=== PATIENT | male | born 1960 | race Caucasian/White ===

== ENCOUNTER 2017-10-03 07:08 | Inpatient (IN) | payer MEDICAID, OTHER ==
--- NOTE | 2017-10-03 07:19 | CPEKG ---
Heart Rate: 81 RR Interval: 741 P-R Interval: 180 QRSD Interval: 104 QT Interval: 388 QTC Interval: 451 P [place]: 51 QRS [place]: 2 T Wave [place]: 154 EKG Severity - ABNORMAL ECG - EKG Impression: SINUS RHYTHM EKG Impression: LVH WITH SECONDARY REPOLARIZATION ABNORMALITY EKG Impression: ST DEPRESSION, CONSIDER ISCHEMIA, ANT-LAT LDS Electronically Signed By: Sandeep Hackett 05-Oct-2017 10:43:23
[2017-10-03] MEDS ORDERED: ASPIRIN 81 MG CHEWABLE TAB PO ONE (07:26)
[2017-10-03 07:30] LABS: PLATELET COUNT 177 10^3/uL (150-400)
[2017-10-03] MEDS ORDERED: DILTIAZEM 25 MG/5 ML VIAL IVP ONE (07:32)
--- NOTE | 2017-10-03 07:32 | EDPHY ---
H & P Time Seen by Provider: 10/03/17 07:28 HPI/ROS: CHIEF COMPLAINT: Rapid heart rate HISTORY OF PRESENT ILLNESS: 56-year-old male presents with rapid heart rate. He was lying in bed at 4:00 a.m. when he developed a fast irregular heartbeat. The rapid heart rate has continued and makes him feel quite anxious. Associated with diffuse achiness, especially in his arms. No alleviating or aggravating factors. History of an occasional irregular beat, but no history of atrial fibrillation/flutter. Recent h/o chest achiness with exertion, especially with uphill walking. History of aortic stenosis in infancy, non- surgical, no cardiac testing as an adult. Cardiac risk factors negative. Nonsmoker; no family history; no hypertension, diabetes or hypercholesterolemia. REVIEW OF SYSTEMS: Constitutional: No fever, no chills Eyes: No visual changes ENT: No sore throat Respiratory: No cough, no shortness of breath Gastrointestinal: No nausea, no vomiting, no abdominal pain Genitourinary: no dysuria Musculoskeletal: No leg pain or swelling Skin: No rash Neurological: No headache, no weakness Psychiatric: Anxious Past Medical/Surgical History: Aortic stenosis in childhood, non-surgical Social History: No PCP Smoking Status: Never smoked Physical Exam: General Appearance: Alert, pleasant Eyes: Pupils equal and round, no conjunctival pallor or injection ENT, Mouth: Mucous membranes moist Neck: Normal inspection Respiratory: Lungs are clear to auscultation Cardiovascular: Irregularly irregular tachycardia Gastrointestinal: Abdomen is soft and nontender Neurological: A&O, nonfocal, normal gait Skin: Warm and dry, no rash Extremities: Nontender, no pedal edema Psychiatric: Anxious Constitutional: Initial Vital Signs Temperature (C) 36.3 C 10/03/17 07:10 Heart Rate 132 H 10/03/17 07:10 Respiratory Rate 14 10/03/17 07:10 Blood Pressure 117/108 H 10/03/17 07:10 O2 Sat (%) 96 10/03/17 07:10 O2 Delivery Mode Room Air Allergies/Adverse Reactions: No Known Allergies Allergy (Unverified 03/15/12 17:52) Home Medications: Medication Instructions Recorded Azithromycin [Zithromax] 250 mg PO DAILY #4 tab 03/15/12 Docusate Sodium [Colace 100 MG (*)] 100 mg PO DAILY PRN #20 cap 03/15/12 Miscellaneous Medical Supply [NO 1 ea MIS AD 03/15/12 HOME MEDS] Medical Decision Making - Diagnostics EKG Interpretation: EKG interpreted by me reveals atrial fibrillation, ventricular rate 142, LVH, diffuse ST segment depression and T wave inversion in the anterolateral leads. Interpretation: Abnormal EKG Repeat EKG reveals normal sinus rhythm, rate 77, LVH, ST segment depression and T-wave inversion in the anterolateral leads. Interpretation: Abnormal EKG Imaging Results: Imaging Impressions Chest X-Ray 10/03/17 07:20 Impression: 1. Tortuous thoracic aorta. 2. No acute pulmonary disease. ED Course/Re-evaluation: 56-year-old male with a history of aortic stenosis presents in rapid atrial fibrillation and with chest discomfort. On exam he has a loud systolic murmur, consistent with aortic stenosis. Stat EKG reveals atrial fibrillation with RVR and ST segment depression in the anterolateral leads. The patient converted to normal sinus rhythm spontaneously and the chest discomfort resolved. Repeat EKG reveals normal sinus rhythm, persistent ST segment depression in the anterolateral leads, with T-wave inversion. Presentation is concerning for cardiac ischemia, posterior GA considered, but no evidence on repeat EKG. Dr. Lamine Breaux was consulted and will see the patient at [facility] ([place], [place]). Stat echocardiogram ordered. The hospitalist service was consulted for admission. Differential Diagnosis: Differential diagnosis includes though it is not limited to pneumonia, pneumothorax, pulmonary embolism, aortic dissection, pericarditis, acute coronary syndrome. - Data Points Laboratory Results: Laboratory Results 10/03/17 07:25 10/03/17 07:25 10/03/17 10/03/17 10/03/17 07:25 07:25 07:25 WBC 6.07 10^3/uL 10^3/uL (3.80-9.50) RBC 5.69 10^6/uL 10^6/uL (4.40-6.38) Hgb 17.7 g/dL H g/dL (13.7-17.5) Hct 48.7 % % (40.0-51.0) MCV 85.6 fL fL (81.5-99.8) MCH 31.1 pg pg (27.9-34.1) MCHC 36.3 g/dL g/dL (32.4-36.7) RDW 12.2 % % (11.5-15.2) Plt Count 177 10^3/uL 10^3/uL (150-400) MPV 10.7 fL fL (8.7-11.7) Neut % (Auto) 51.0 % % (39.3-74.2) Lymph % (Auto) 35.4 % % (15.0-45.0) [place] % (Auto) 10.2 % % (4.5-13.0) Eos % (Auto) 2.1 % % (0.6-7.6) Baso % (Auto) 1.0 % % (0.3-1.7) Nucleat RBC Rel Count 0.0 % % (0.0-0.2) Absolute Neuts (auto) 3.09 10^3/uL 10^3/uL (1.70-6.50) Absolute Lymphs (auto) 2.15 10^3/uL 10^3/uL (1.00-3.00) Absolute Monos (auto) 0.62 10^3/uL 10^3/uL (0.30-0.80) Absolute Eos (auto) 0.13 10^3/uL 10^3/uL (0.03-0.40) Absolute Basos (auto) 0.06 10^3/uL 10^3/uL (0.02-0.10) Absolute Nucleated RBC 0.00 10^3/uL 10^3/uL (0-0.01) Immature Gran % 0.3 % % (0.0-1.1) Immature Gran # 0.02 10^3/uL 10^3/uL (0.00-0.10) PT 12.6 SEC SEC (12.0-15.0) INR 0.95 (0.83-1.16) APTT 29.0 SEC SEC (23.0-38.0) D-Dimer 0.32 ug/mLFEU ug/mLFEU (0.00-0.50) Sodium 144 mEq/L mEq/L (135-145) Potassium 4.0 mEq/L mEq/L (3.5-5.2) Chloride 104 mEq/L mEq/L (97-110) Carbon Dioxide 23 mEq/l mEq/l (22-31) Anion Gap 17 mEq/L H mEq/L (8-16) BUN 13 mg/dL mg/dL (7-23) Creatinine 1.0 mg/dL mg/dL (0.7-1.3) Estimated GFR > 60 Glucose 110 mg/dL H mg/dL (70-100) Calcium 8.4 mg/dL L mg/dL (8.5-10.4) Troponin I 0.066 ng/mL H ng/mL (0.000-0.034) NT-Pro-B Natriuret Pep 1050 pg/mL H pg/mL (0-125) Medications Given: Heparin Sodium (Porcine) (Heparin 50 Units/Ml (Premix)) 500 mls @ 0 mls/hr IV CONT DURGA; Per Protocol PRN Reason: Protocol Stop: 04/01/18 09:44 Last Admin: 10/03/17 10:05 Dose: 500 mls Discontinued Medications Aspirin (Aspirin) 324 mg PO EDNOW ONE Stop: 10/03/17 07:27 Last Admin: 10/03/17 07:37 Dose: 324 mg Diltiazem HCl (Cardizem 25 Mg/5 Ml Vial) 10 mg IVP EDNOW ONE Stop: 10/03/17 07:33 Last Admin: 10/03/17 07:58 Dose: Not Given Heparin Sodium (Porcine) (Heparin Injection) 0 unit IVP ONCE ONE PRN Reason: Protocol Stop: 10/03/17 09:37 Last Admin: 10/03/17 10:04 Dose: 6,700 units Departure - Departure Disposition: [facility] Inpatient Acute Clinical Impression: Chest pain Qualifiers: Chest pain type: precordial pain Qualified Code(s): R07.2 - Precordial pain Atrial fibrillation Qualifiers: Atrial fibrillation type: paroxysmal Qualified Code(s): I48.0 - Paroxysmal atrial fibrillation Condition: Serious
[2017-10-03 07:44] LABS: INR 0.95 (0.83-1.16); PROTIME(PATIENT) 12.6 SEC (12.0-15.0)
--- NOTE | 2017-10-03 08:03 | CPEKG ---
Heart Rate: 77 RR Interval: 779 P-R Interval: 180 QRSD Interval: 104 QT Interval: 392 QTC Interval: 444 P [place]: 51 QRS [place]: 7 T Wave [place]: 164 EKG Severity - ABNORMAL ECG - EKG Impression: SINUS RHYTHM EKG Impression: LVH WITH SECONDARY REPOLARIZATION ABNORMALITY EKG Impression: ST DEPRESSION, CONSIDER ISCHEMIA, ANT-LAT LDS Electronically Signed By: Sandeep Hackett 05-Oct-2017 10:43:17
[2017-10-03] MEDS ORDERED: LORazepam 2 MG/ML INJ IVP PRN (09:17)
[2017-10-03] MEDS ORDERED: ONDANSETRON DISINTEGRATING 4 MG TAB PO PRN (09:17)
[2017-10-03] MEDS ORDERED: LORazepam 0.5 MG TAB PO PRN (09:17)
[2017-10-03] MEDS ORDERED: D5W 1/2 NS 1,000 ML IV SCH (09:30)
[2017-10-03] MEDS ORDERED: HEPARIN 10,000 UNIT/10 ML MDV (1,000 UNIT/ML) IVP PRN (09:36)
[2017-10-03] MEDS ORDERED: HEPARIN 10,000 UNIT/10 ML MDV (1,000 UNIT/ML) IVP ONE (09:36)
[2017-10-03] MEDS ORDERED: METOPROLOL TARTRATE 25 MG TAB PO ONE (09:37)
[2017-10-03] MEDS ORDERED: HEPARIN/DEXTROSE 500 ML IV SCH (09:45)
--- NOTE | 2017-10-03 11:45 | ECHO ---
[email or web address] [address] [address] Main: [phone] Fax: Transthoracic Echocardiogram Name: GERALD MULLER MR#: [id number] Study Date: 10/03/2017 Study Time: 09:54 AM Date of : 1960 Age: 56 year(s) Height: 193 cm (76 in.) Weight: 108.86 kg (240 lb.) BSA: 2.39 m2 Gender: Male Examination: Echo Indication: Chest Pain Image Quality: Contrast: Requested by: Keesha Lin BP: 113 mmHg/79 mmHg Heart Rate: Rhythm: Indication: Chest Pain Procedure Staff Picker: Tanja Galloway [facility] Reading Physician: Leighton West Requesting Provider: Conclusions: Mildly dilated left ventricle. Moderate concentric LV hypertrophy. Normal global systolic LV function. EF is 64 %. No regional wall motion abnormality. E/a wave reversal.. Normal size right ventricle. The left atrium is normal in size. The right atrium is normal in size. Trivial mitral valve regurgitation. Severe calcific aortic valve stenosis. Mild aortic valve regurgitation is present. Severely calcified of the aortic valve. AV max PG is 76mmHG. AV mean PG is 48mmHG,. The tricuspid valve is normal in appearance and function. The pulmonic valve is normal in appearance and function. Mildly dilated ascending aorta measuring 4.3 cm. Measurements: Chambers Valvular Assessment AV/MV Valvular Assessment TV/PV Normal Normal Normal Name Value Range Name Value Range Name Value Range Ao Ilene (MM): 3.9 cm (2.2 cm-3.7 AV Vmax: 4.37 m/s (1 m/s-1.7 TR Vmax: 2.48 mm/s ( - ) cm) m/s) TR PGmax: 25 mmHg ( - ) IVSd (2D): 1.1 cm (0.6 cm-1.1 AV maxP mmHg ( - ) syst. PAP: 30 mmHg ( - ) cm) AV meanP mmHg ( - ) LVDd (2D): 6.1 cm (4.2 cm-5.9 LVOT Vmax: 0.77 m/s (0.7 m/s-1.1 cm) m/s) LVDs (2D): 4.3 cm (2.1 cm-4 AUBREY (Vmax): 1.1 cm2 ( - ) cm) AUBREY (VTI): 1.0 cm ( - ) MV E Vmax: 0.39 m/s ( - ) Patient: GERALD MULLER Study Date: 10/03/2017 Page 1 of 2 09:54 AM LVPWd (2D): 1.1 cm (0.6 cm-1 MV A Vmax: 0.86 m/s ( - ) cm) MV E/A: 0.45 ( - ) LVOTd 2.8 cm 2.8 cm mm LVEF (MOD4): 64 % (>=55 %) Continued Measurements: Chambers Valvular Assessment AV/MV Valvular Assessment TV/PV Name Value Name Value Name Value LADs Lon.4 cm MV E/E' Septal: 9.80 CVP (est.): 5 mmHg LA Area: 15.1 cm2 MV E/E' Lateral: 10.50 Additional Vessels Name Value Ao Ascendin.3 cm Findings: Left Ventricle: Mildly dilated left ventricle. Moderate concentric LV hypertrophy. Normal global systolic LV function. EF is 64 %. No regional wall motion abnormality. E/a wave reversal.. Right Ventricle: Normal size right ventricle. Left Atrium: The left atrium is normal in size. Right Atrium: The right atrium is normal in size. Mitral Valve: The mitral valve is normal in appearance and function. Trivial mitral valve regurgitation. Aortic Valve: Severe calcific aortic valve stenosis. Mild aortic valve regurgitation is present. Severely calcified of the aortic valve. AV max PG is 76mmHG. AV mean PG is 48mmHG,. Tricuspid Valve: The tricuspid valve is normal in appearance and function. Pulmonic Valve: The pulmonic valve is normal in appearance and function. Aorta: The aorta is normal. Mildly dilated ascending aorta measuring 4.3 cm. Pericardium: No pericardial effusion. (No Signature Object) Patient: GERALD MULLER Study Date: 10/03/2017 Page 2 of 2 09:54 AM [id number]
--- NOTE | 2017-10-03 12:16 | PDGENHP ---
History and Physical - Chief Complaint Acute palpitation - History of Present Illness Primary care provider: None HPI: 56-year-old male presenting with acute palpitation characterized as a sensation that his heart was racing, with palpable palpitation in his neck and ears, with associated myalgias located across his anterior chest and upper extremities, provoked in his lower extremities with ambulation, and resulting in some anxiety. Onset of symptoms was 4:00 a.m. on the day of presentation, and duration was persistent thereafter until the patient got [facility], approximately 3.5 hr later. While at urgent care, the patient's palpitations and chest discomfort abated, prior to receiving diltiazem. He reports that over the past couple weeks he has experienced shortness of breath exacerbated with exertion, particularly ambulating upstairs or hiking, and although this has been present for the past couple years, it has increased over the last few weeks. It has been alleviated with rest. He has experienced palpitations of lower severity approximately 8 years ago, when he went to [place] and was evaluated with an EKG in the emergency department, told that he had nothing wrong. He has noted that recently he experiences an irregular heartbeat , has not noted any sustained irregularity. He does exercise on a weekly basis , but he reports that he does not do any significant cardiovascular exercise, other than hiking, which has recently become impaired secondary to his poor exercise tolerance. History Information - Allergies/Home Medication List Allergies/Adverse Reactions: bee stings Allergy (Uncoded 10/03/17 11:12) Home Medications: NK [No Known Home Meds] 10/03/17 [Last Taken Unknown] I have personally reviewed and updated: family history, medical history, social history, surgical history - Past Medical History Additional medical history: Aortic stenosis identified in childhood, has not had an echocardiogram as an adult - Surgical History Reports: no pertinent surgical hx - Family History Additional family history: No family history of premature coronary disease or aortic dissection - Social History Smoking Status: Never smoked Alcohol Use: Occasionally Drug Use: None Additional social history: Independent in ADLs comma exercises weekly but lacks cardiovascular exercise Review of Systems Review of Systems: ROS: 10pt was reviewed & negative except for what was stated in HPI & below Cardiac: Reports: irregular heart rate, palpitations, other (Chest discomfort) Respiratory: Reports: shortness of breath (Exertional) Muscolosketal: Reports: other (Myalgias upper extremities) Physical Exam Physical Exam: Temp Pulse Resp BP Pulse Ox 36.7 C 67 15 125/94 H 98 10/03/17 11:44 10/03/17 12:06 10/03/17 12:06 10/03/17 12:06 10/03/17 12:06 O2 (L/minute) 2 Constitutional: no apparent distress, appears nourished, not in pain Eyes: PERRL, anicteric sclera, EOMI Ears, Nose, Mouth, Throat: moist mucous membranes, hearing normal, ears appear normal, no oral mucosal ulcers Cardiovascular: systolic murmur (3/6 at right sternal border), No irregularly irregular, No tachycardia, No edema Respiratory: no respiratory distress, no rales or rhonchi, clear to auscultation Gastrointestinal: normoactive bowel sounds, soft, non-tender abdomen, no palpable masses Skin: warm, No abrasion, No rash Neurologic: AAOx3, sensation intact bilaterally, No weakness Psychiatric: interacting appropriately, not anxious, not encephalopathic, thought process linear Lab Data & Imaging Review 10/03/17 07:25 10/03/17 07:25 WBC 6.07 10^3/uL (3.80-9.50) 10/03/17 07:25 RBC 5.69 10^6/uL (4.40-6.38) 10/03/17 07:25 Hgb 17.7 g/dL (13.7-17.5) H 10/03/17 07:25 Hct 48.7 % (40.0-51.0) 10/03/17 07:25 MCV 85.6 fL (81.5-99.8) 10/03/17 07:25 MCH 31.1 pg (27.9-34.1) 10/03/17 07:25 MCHC 36.3 g/dL (32.4-36.7) 10/03/17 07:25 RDW 12.2 % (11.5-15.2) 10/03/17 07:25 Plt Count 177 10^3/uL (150-400) 10/03/17 07:25 MPV 10.7 fL (8.7-11.7) 10/03/17 07:25 Neut % (Auto) 51.0 % (39.3-74.2) 10/03/17 07:25 Lymph % (Auto) 35.4 % (15.0-45.0) 10/03/17 07:25 [place] % (Auto) 10.2 % (4.5-13.0) 10/03/17 07:25 Eos % (Auto) 2.1 % (0.6-7.6) 10/03/17 07:25 Baso % (Auto) 1.0 % (0.3-1.7) 10/03/17 07:25 Nucleat RBC Rel Count 0.0 % (0.0-0.2) 10/03/17 07:25 Absolute Neuts (auto) 3.09 10^3/uL (1.70-6.50) 10/03/17 07:25 Absolute Lymphs (auto) 2.15 10^3/uL (1.00-3.00) 10/03/17 07:25 Absolute Monos (auto) 0.62 10^3/uL (0.30-0.80) 10/03/17 07:25 Absolute Eos (auto) 0.13 10^3/uL (0.03-0.40) 10/03/17 07:25 Absolute Basos (auto) 0.06 10^3/uL (0.02-0.10) 10/03/17 07:25 Absolute Nucleated RBC 0.00 10^3/uL (0-0.01) 10/03/17 07:25 Immature Gran % 0.3 % (0.0-1.1) 10/03/17 07:25 Immature Gran # 0.02 10^3/uL (0.00-0.10) 10/03/17 07:25 PT 12.6 SEC (12.0-15.0) 10/03/17 07:25 INR 0.95 (0.83-1.16) 10/03/17 07:25 APTT 29.0 SEC (23.0-38.0) 10/03/17 07:25 D-Dimer 0.32 ug/mLFEU (0.00-0.50) 10/03/17 07:25 Sodium 144 mEq/L (135-145) 10/03/17 07:25 Potassium 4.0 mEq/L (3.5-5.2) 10/03/17 07:25 Chloride 104 mEq/L (97-110) 10/03/17 07:25 Carbon Dioxide 23 mEq/l (22-31) 10/03/17 07:25 Anion Gap 17 mEq/L (8-16) H 10/03/17 07:25 BUN 13 mg/dL (7-23) 10/03/17 07:25 Creatinine 1.0 mg/dL (0.7-1.3) 10/03/17 07:25 Estimated GFR > 60 10/03/17 07:25 Glucose 110 mg/dL (70-100) H 10/03/17 07:25 Calcium 8.4 mg/dL (8.5-10.4) L 10/03/17 07:25 Troponin I 0.066 ng/mL (0.000-0.034) H 10/03/17 07:25 NT-Pro-B Natriuret Pep 1050 pg/mL (0-125) H 10/03/17 07:25 TSH 3.240 uIU/mL (0.465-4.680) 10/03/17 10:54 Visualized and Interpreted Chest x-ray results: Yes Chest X-Ray results: no infiltrate (A tortuous aorta) Visualized and Interpreted EKG results: Yes EKG Interpretation: Positive for: other (Initial EKG demonstrating atrial fibrillation with anterolateral ST depression, subsequent EKG demonstrating normal sinus mechanism with T-wave inversion laterally) Assessment & Plan Assessment: 56-year-old male presenting with acute atrial fibrillation and rapid ventricular response in the setting of aortic stenosis and myocardial ischemia Plan: 1. Atrial fibrillation with rapid ventricular response. Acute, new problem this provider, further workup indicated. Unclear whether this is a result of his aortic stenosis versus result of myocardial ischemia verses the cause of myocardial ischemia -patient spontaneously [facility], continue monitor on telemetry for recurrence as he is high risk -patient will most likely require either sanchez blocking or antiarrhythmic agent moving forward -whether he requires systemic anticoagulation will be at the discretion of Cardiology, depending on further workup outlined below -echocardiogram, TSH 2. Myocardial ischemia. Likely transient in the setting of AFib RVR, although it is entirely possible that it may have been the cause, troponin 0.7, EKG with T-wave inversions and dynamic ST depressions -continue monitor on telemetry as noted above -discussed with Dr. Leighton West, appreciate consultation, he reports to me that cardiac catheterization would be considered after he has evaluated the patient' s echocardiogram -continue the keep the patient NPO -continue to cycle cardiac enzymes -given the possibility of unstable angina, patient has received full-dose aspirin, give low-dose beta-jessica, placed on heparin drip 3. Aorta stenosis. Chronic, unclear severity, getting echocardiogram, this may have been potentiating cause of atrial fibrillation and myocardial strain -avoid lowering his blood pressure Diet. NPO presently, IV fluids Prophylaxis. High patient, heparin drip Code. Full, is [place] Disposition. Anticipated discharge 10/04, pending further workup as outlined above. Patient is a high risk patient, high level medical complexity given the situations above.
[2017-10-03] MEDS ORDERED: fentaNYL 100 MCG/2 ML INJ ONE (13:48)
[2017-10-03] MEDS ORDERED: MIDAZOLAM 2 MG/2 ML VIAL ONE (13:48)
[2017-10-03] MEDS ORDERED: LIDOCAINE 1% 300 MG/30 ML SDV ONE (13:48)
[2017-10-03] MEDS ORDERED: IOPAMIDOL (ISOVUE-370) 150 ML BTL IV ONE (13:48)
--- NOTE | 2017-10-03 14:11 | PDCARCONS ---
Cardiology Consult Reason for Consult: Tachycardia and history of "murmur" Chief Complaint: Fast heart rates Requesting Physician: Hospitalist Team History of Present Illness: 56 y/o male with history of "murmur", but no history of CAD, HTN, HLP, or DM, who presented to [facility] urgent care with "fast heart rates". Patient had awareness of palpitations with discomfort to the chest and heaviness to the upper extremities. Symptoms started about 0400 today, and continued into the evaluation at [facility]. Patient's arrhythmia (atrial fibrillation with RVR) spontaneously resolved prior to IV CCB therapy being given. Patient also reported to ER and hospitalist team symptoms of shortness of breath, exercise intolerance, and palpitations (such as that noted today, but without protracted presence). Patient had a work up in [place] with ECG about 8 years ago, at which time "everything was fine". Dizziness and lightheadedness have been noted. No syncope. Mild LE edema has been noted, but was attributed to long travel in car. Remainder of the 12 point review of systems was unremarkable. In the remote past, the patient was told that he had a "bicuspid aorta", but has not sought follow up imaging or assessment for "...many years...". Angiography when he was [age] years of age, was the last, formal work up. Patient and were evaluated in the step down of the ICU today prior to formal read on echocardiography. I suspected progression of the known aortic valve pathology based on symptoms and physical findings (as reported below). History Information - Allergies/Home Medication List Allergies/Adverse Reactions: bee stings Allergy (Uncoded 10/03/17 11:12) Home Medications: NK [No Known Home Meds] 10/03/17 [Last Taken Unknown] I have personally reviewed and updated: family history, medical history, social history, surgical history Past Medical History: - Past Medical History atrial fibrillation - Surgical History Reports: no pertinent surgical hx - Family History Positive for: CAD, hypertension - Social History Smoking Status: Never smoked Alcohol Use: Occasionally Drug Use: None Cardiac History - Cardiac History Past Cardiac History: OTHER (bicuspid aortic valve without follow up) Cardiac Risk Factors: male Timing/Duration: Weeks Severity: moderate Severity Scale: 6 Location: substernal, central Activities at Onset: activity Modifying Factors: improves with: lying down, rest Associated Symptoms: chest pain, shortness of breath, weakness, other ( palpitations) Physical Exam Physical Exam: Temp Pulse Resp BP Pulse Ox 36.7 C 67 15 125/94 H 98 10/03/17 11:44 10/03/17 12:06 10/03/17 12:06 10/03/17 12:06 10/03/17 12:06 O2 (L/minute) 2 Constitutional: no apparent distress, appears nourished, not in pain Eyes: PERRL Ears, Nose, Mouth, Throat: moist mucous membranes, hearing normal Cardiovascular: regular rate and rhythym, systolic murmur (IV/ SEE), pulses symmetric bilaterally, carotid bruit (secondary to aortic valve pathology ( referred)), No JVD, No tachycardia Peripheral Pulses: 2+: dorsalis-pedis (R), dorsalis-pedis (L) Respiratory: no respiratory distress, no rales or rhonchi, clear to auscultation Gastrointestinal: normoactive bowel sounds Genitourinary: no bladder fullness Skin: warm, normal color, No rash Musculoskeletal: full muscle strength, no muscle tenderness Neurologic: AAOx3, sensation intact bilaterally, CN II-XII Intact Psychiatric: interacting appropriately, not anxious, not encephalopathic Lab and Imaging 10/03/17 07:25 10/03/17 07:25 WBC 6.07 10^3/uL (3.80-9.50) 10/03/17 07:25 RBC 5.69 10^6/uL (4.40-6.38) 10/03/17 07:25 Hgb 17.7 g/dL (13.7-17.5) H 10/03/17 07:25 Hct 48.7 % (40.0-51.0) 10/03/17 07:25 MCV 85.6 fL (81.5-99.8) 10/03/17 07:25 MCH 31.1 pg (27.9-34.1) 10/03/17 07:25 MCHC 36.3 g/dL (32.4-36.7) 10/03/17 07:25 RDW 12.2 % (11.5-15.2) 10/03/17 07:25 Plt Count 177 10^3/uL (150-400) 10/03/17 07:25 MPV 10.7 fL (8.7-11.7) 10/03/17 07:25 Neut % (Auto) 51.0 % (39.3-74.2) 10/03/17 07:25 Lymph % (Auto) 35.4 % (15.0-45.0) 10/03/17 07:25 [place] % (Auto) 10.2 % (4.5-13.0) 10/03/17 07:25 Eos % (Auto) 2.1 % (0.6-7.6) 10/03/17 07:25 Baso % (Auto) 1.0 % (0.3-1.7) 10/03/17 07:25 Nucleat RBC Rel Count 0.0 % (0.0-0.2) 10/03/17 07:25 Absolute Neuts (auto) 3.09 10^3/uL (1.70-6.50) 10/03/17 07:25 Absolute Lymphs (auto) 2.15 10^3/uL (1.00-3.00) 10/03/17 07:25 Absolute Monos (auto) 0.62 10^3/uL (0.30-0.80) 10/03/17 07:25 Absolute Eos (auto) 0.13 10^3/uL (0.03-0.40) 10/03/17 07:25 Absolute Basos (auto) 0.06 10^3/uL (0.02-0.10) 10/03/17 07:25 Absolute Nucleated RBC 0.00 10^3/uL (0-0.01) 10/03/17 07:25 Immature Gran % 0.3 % (0.0-1.1) 10/03/17 07:25 Immature Gran # 0.02 10^3/uL (0.00-0.10) 10/03/17 07:25 PT 12.6 SEC (12.0-15.0) 10/03/17 07:25 INR 0.95 (0.83-1.16) 10/03/17 07:25 APTT 29.0 SEC (23.0-38.0) 10/03/17 07:25 D-Dimer 0.32 ug/mLFEU (0.00-0.50) 10/03/17 07:25 Sodium 144 mEq/L (135-145) 10/03/17 07:25 Potassium 4.0 mEq/L (3.5-5.2) 10/03/17 07:25 Chloride 104 mEq/L (97-110) 10/03/17 07:25 Carbon Dioxide 23 mEq/l (22-31) 10/03/17 07:25 Anion Gap 17 mEq/L (8-16) H 10/03/17 07:25 BUN 13 mg/dL (7-23) 10/03/17 07:25 Creatinine 1.0 mg/dL (0.7-1.3) 10/03/17 07:25 Estimated GFR > 60 10/03/17 07:25 Glucose 110 mg/dL (70-100) H 10/03/17 07:25 Calcium 8.4 mg/dL (8.5-10.4) L 10/03/17 07:25 Troponin I 0.066 ng/mL (0.000-0.034) H 10/03/17 07:25 NT-Pro-B Natriuret Pep 1050 pg/mL (0-125) H 10/03/17 07:25 TSH 3.240 uIU/mL (0.465-4.680) 10/03/17 10:54 Visualized and Interpreted Chest x-ray results: Yes Chest X-ray Interpretation: no infiltrate, normal heart size, other (tortuous aorta) EKG Interpretation: Positive for: normal sinsus rhythm, NS ST wave abnormalities , other (LVH), ST depression Telemetry: sinus rhythm with ST/T wave changes Echocardiogram: normal LVEF. Severe aortic stenosis (mean: >40 mm Hg; AUBREY est 0.88 cm^2) with mild to moderate AI. Mild LVH. Mild LV dilation A/P Assessment: Patient is a 56 y/o male with longstanding history of bicuspid aortic valve, now with pAF noted (has been noted for "some time", but not protracted, as was noted today), and symptoms of dizziness, lightheadedness, weakness, and exercise intolerance. Echocardiography with critical with AI and preserved LVEF, but mild dilation to the LV. Plan: I spoke with CT surgery. Angiography is planned for today. No need for GEOVANI ( per CT surgery). Further recommendations and formal CT consultation is pending. Would ensure that patient's children have echocardiography for assessment of potential valve pathology.
--- NOTE | 2017-10-03 14:19 | PDPROPOC ---
Sedation Plan of Care Sedation Plan of Care: vital signs stable, mental status noted, patient educated of risks, benefits, alternatives, patient can tolerate sedation ASA Classification: ASA 2 Planned drugs: fentanyl, midazolam Mallampati Score: Class 3 Mallampati Reference Image: Patient passed 3-3-2 rule?: Yes
--- NOTE | 2017-10-03 14:20 | PDHPUP ---
History & Physical Update H&P update statement: This history and physical update is based on an assessment of the patient which was completed after admission or registration (within 24 hours), but prior to the surgery/procedure. H&P update: H&P reviewed & patient examined, no change in patient's condition since H&P completed (cardiology consult is posted.)
--- NOTE | 2017-10-03 14:59 | PDDXCAT ---
Diagnostic Cath Note - . Date: 10/03/17 Production Support Consultant: Brett Indication: other (patient with pending aortic valve surgery) - Procedure Access: right groin Procedure: left heart catheterization, coronary angiography - Materials Left Heart Cath size: 6F Left Heart Cath materials: standard multipack (JL4, JR4, pigtail), JL5.0 - Findings-Left Heart Catheterization LM: Lengthy medium diameter vessel with bifurcation into the LAD and LCX vessels. No luminal irregularities were noted. LAD: Large diameter vessel with one principal diagonal vessel. No luminal irregularities were noted. LCX: Medium diameter vessel with a smallish OM1. OM2 with vast majority of the LCX diameter continuing on. The mid/distal LCX is rather small an diminuative. RCA: Non selective injection of the RCA. Dominant vessel (PDA) without appreciable luminal irregularities noted. EDP: not performed LVEF: not performed. we performed an aortic root injection give (a) catheter whip when attempting RCA injection and the need for JL5 given the appreciated dilation noted. The ascending aorta was 4.5 cm with dilation of the innominate as well. Wall motion: not assessed Complications: none Estimated blood loss: <50ml Closure method: Angioseal Assessment: Patient is a 56 y/o male with known, long standing history of bicuspid aortic valve without cardiovascular follow up for "years". Critical with AI noted on echo with preserved LVEF and mild LV dilation. No other critical valve pathology was noted. Aortic root dilation (4.5 cm) is noted as well. Plan: CT surgery to consult with the patient today and discuss AVR for tomorrow ( potentially) with root replacement. Intervention: none Patient Problems: Problems Problem Status Onset Atrial fibrillation Acute Chest pain Acute
--- NOTE | 2017-10-03 20:00 | GCON ---
[f rep st] CONSULTATION DATE OF CONSULTATION: 10/03/2017 Patient is seen at the request of Dr. West with the patient's permission. IMPRESSION: 1. Severely symptomatic aortic stenosis with paroxysmal atrial fibrillation, recurrent. 2. Moderately enlarged ascending aorta at 4.3 cm. RECOMMENDATIONS: This patient is quite symptomatic with crescendo symptoms over the last year, preci pitating admission for acute congestive heart failure precipitated by atrial fibrillation in the face of aortic stenosis. He underwent diagnostic left heart catheterization. He spontaneously cardiover digna to sinus rhythm. He was recommended to undergo replacement of his ascending aorta and aortic justin ve with a Mcarthur-Maze IV procedure. Risks and complications were reviewed at length. Alternatives incl ude continued medical therapy with obvious poor outcome. He and his were present for discussion . All risks and complications, including 1% mortality, were reviewed at length. I advised him he wo uld need 3 months of full anticoagulation on Coumadin and that we would do some sort of event monitor to assess his rhythm at the end to 3 months, and if he remained in sinus rhythm, we could consider d iscontinuing anticoagulants. I also advised him there was a small 3% to 5% risk of permanent pacemak er in the face of aortic stenosis and atrial fibrillation, depending upon the calcium burden, particu larly around the bundle and the membranous septum. He is agreeable to proceed with surgery. CHIEF COMPLAINT: A 56-year-old gentleman presenting with acute palpitations and a sensation his hear t was racing in his neck and ears. He had associated myalgias across the anterior chest and extremit ies provoked by ambulation. He also had significant anxiety on presentation. He admits to having wo rsening dyspnea on exertion and inability to do anything physical, including walking any significant distance without experiencing shortness of breath. He feels palpitations on a regular basis for the last year, but has never sought medical attention or had any diagnostic tests performed. He was foun d to be in rapid atrial fibrillation on admission. Echo revealed critical aortic stenosis. Coronari es showed no significant obstructive disease with a 4.3 to 4.5 cm ascending aorta. PAST MEDICAL HISTORY: Otherwise unremarkable. He was advised he had an aortic murmur in childhood. PAST SURGICAL HISTORY: No previous surgical history. FAMILY HISTORY: Noncontributory. SOCIAL HISTORY: Smoking: He never smoked. Alcohol: Occasional. Drug use: None. He is independe nt, retired from [employer]. He is and has 1 child, who is present. REVIEW OF SYSTEMS: Except for presenting complaints, at the present time, he is lying comfortably in bed, quite anxious and tearful. Family is present. PHYSICAL EXAMINATION: HEENT: Normocephalic. NIKITA. EOMI. NECK: Without bruit. HEART: Reveals a 3/6 systolic ejection murmur. He is currently in sinus rhythm. LUNGS: Clear. ABDOMEN: Soft, nontender. Bowel sounds are active. RECTAL AND GENITAL: Deferred. NEUROLOGICAL: He is grossly intact. Mood and affect are appropriate but tearful. /[id number]/MODL
[2017-10-03] MEDS ORDERED: CHLORHEXIDINE GLUC HIBICLENS 118 ML BTL TP SCH (21:00)
--- NOTE | 2017-10-03 21:21 | PDMN ---
Medical Necessity Medical necessity: Patient meets inpatient criteria per physician note and [facility] [place] [place] Cardiology GRG, with likely change to [id number] Cardiac Valve Replacement or Repair (acute valvular disease requiring inpatient admission: severe aortic stenosis/ hx bicuspid aortic valve, now w/ exercise intolerance, palpitations, atrial fib , chest discomfort; awaiting aortic valve/ascending aortic repair/replacement; anticipated LOS > 2 midnights for surgery and recovery.)
[2017-10-04 06:19] LABS: PLATELET COUNT 145 10^3/uL (150-400)
[2017-10-04] MEDS ORDERED: ALBUMIN 5% 250 ML BOTTLE IV ONE ×2 (06:58→19:28)
[2017-10-04] MEDS ORDERED: PROTAMINE SULFATE 50 MG/5 ML VIAL IVP ONE ×2 (06:58→18:55)
[2017-10-04] MEDS ORDERED: NA BICARBONATE 50 MEQ/50 ML VIAL ONE (06:59)
[2017-10-04] MEDS ORDERED: HEPARIN 10,000 UNIT/10 ML MDV (1,000 UNIT/ML) ONE (06:59)
[2017-10-04] MEDS ORDERED: MILRINONE/DEXTROSE/100 ML BAG IV ONE (06:59)
[2017-10-04] MEDS ORDERED: DOPamine/DEXTROSE/250 ML BAG IV ONE (06:59)
[2017-10-04] MEDS ORDERED: LIDOCAINE 2% 100 MG/5 ML SYR ONE ×2 (06:59→14:37)
[2017-10-04] MEDS ORDERED: CALCIUM CHLORIDE 1 GM/10 ML INJ ONE ×4 (06:59→20:24)
[2017-10-04] MEDS ORDERED: CITRATE DEXTROSE SOLN 500 ML BAG ONE (06:59)
[2017-10-04] MEDS ORDERED: niCARdipine/NACL/200 ML BAG IV ONE (06:59)
[2017-10-04] MEDS ORDERED: MAGNESIUM SULFATE 1 GM/2 ML VIAL ONE (07:00)
[2017-10-04] MEDS ORDERED: methylPREDNISolone SOD SUCC 1 GM/8 ML VIAL ONE (07:00)
[2017-10-04] MEDS ORDERED: ADENOSINE 6 MG/2 ML VIAL ONE (07:00)
[2017-10-04] MEDS ORDERED: AMIODARONE HCL 150 MG/3 ML VIAL ONE (07:00)
[2017-10-04] MEDS ORDERED: ceFAZolin 1 GM VIAL ONE ×3 (07:00→19:24)
--- NOTE | 2017-10-04 09:47 | ASMTLACE ---
TOY Acuity / Level of Answers: Yes Care: Did the patient have an inpatient admission? Comorbidities - select Answers: Other Notes: CP, Afib, Severe aortic all that apply stenosis # of Emergency department Answers: 1-2 visits in the last 6 months Score: 5 Date Signed: 10/04/2017 09:46 AM Electronically Signed By:Sravanthi Yang LCSW
--- NOTE | 2017-10-04 09:52 | ASMTCMCOM ---
CM Note CM Note Notes: 56 year old male admitted for CP, Afib, Severe Aortic stenosis. Paient lives with his . CM to follow for possible discharge needs. Date Signed: 10/04/2017 09:51 AM Electronically Signed By:Sravanthi Yang LCSW
--- NOTE | 2017-10-04 10:37 | PDCARPN ---
Cardiology Progress Note Chief Complaint: No cardiovascular complaints, but moderate (expected) anxiety about pending surgery Assessment/Plan: Assessment: 10-04-17 No cardiovascular complaints. Patient is scheduled for AVR, ascending root replacement and MAZE later today. Angiography yesterday did not isolate any critical CAD. Dilation of the aortic root was noted (up to 4.5 cm). No LV gram was performed given the data from echocardiography. Patient denies any chest pains or pressure today. No PND or orthopnea. No arrhythmias were appreciated. Discussion with CT surgery about risks and benefits of the pending surgery yesterday. Sleep overnight was fair. 10-03-17 56 y/o male with history of "murmur", but no history of CAD, HTN, HLP, or DM, who presented to [facility] [place] urgent care with "fast heart rates". Patient had awareness of palpitations with discomfort to the chest and heaviness to the upper extremities. Symptoms started about 0400 today, and continued into the evaluation at [facility] [place]. Patient's arrhythmia (atrial fibrillation with RVR) spontaneously resolved prior to IV CCB therapy being given. Patient also reported to ER and hospitalist team symptoms of shortness of breath, exercise intolerance, and palpitations (such as that noted today, but without protracted presence). Patient had a work up in [place] with ECG about 8 years ago, at which time "everything was fine". Dizziness and lightheadedness have been noted. No syncope. Mild LE edema has been noted, but was attributed to long travel in car. Remainder of the 12 point review of systems was unremarkable. In the remote past, the patient was told that he had a "bicuspid aorta", but has not sought follow up imaging or assessment for "...many years...". Angiography when he was [age] years of age, was the last, formal work up. Patient and were evaluated in the step down of the ICU today prior to formal read on echocardiography. I suspected progression of the known aortic valve pathology based on symptoms and physical findings (as reported below). Plan: (1) CT surgery with AVR, aortic root, and MAZE later today Subjective: No cardiovascular complaints. Moderate anxiety. Reviewed/Discussed With: family, multidisciplinary team Objective: Vital Signs (8 Hrs) Temp Pulse Resp BP Pulse Ox 10/04/17 04:00 36.8 C 67 18 99/69 L 93 Intake/Output (24 Hrs) 02/12/18 02/13/18 02/14/18 05:59 05:59 05:59 Intake Total 1250 Balance 1250 Intake: Oral (ml) 900 IV Infused (ml) 350 D5w 1/2 Ns 1,000 ml @ 100 250 mls/hr IV CONT DURGA Rx#: [id number] Heparin/Dextrose 500 ml @ 100 Per Protocol IV CONT DURGA Rx#:[id number] Other: Number of Voids Toilet 2 Result Diagrams: 10/04/17 05:55 10/04/17 05:55 Cardiac Labs: Cardiac Lab Results (72 Hrs) 10/04/17 10/03/17 05:55 16:45 Troponin I 0.483 H 0.923 H Telemetry: sinus rhythm with non specific ST/T wave changes noted (unchanged) - Physical Exam Constitutional: WDWN, healthy appearing, no apparent distress Eyes: PERRL, EOMI Ears, Nose, Mouth, Throat: moist mucous membranes Cardiovascular: regular rate and rhythm, systolic murmur (IV/ SEE with radiation into carotids (right>left)), pulses symmetric bilat, No jugular vein distention Peripheral Pulses: 2+: dorsalis-pedis (R), dorsalis-pedis (L) Respiratory: clear to auscultate bilat, no crackles, no wheezes Gastrointestinal: normoactive bowel sounds Genitourinary: no suprapubic tenderness Skin: no rashes, no edema Musculoskeletal: no muscular tenderness Neurologic: AAOx3, CN II-XII grossly intact Psychiatric: cooperative, interactive, following commands, anxious ICD10 Worksheet Patient Problems: Problems Problem Status Onset Atrial fibrillation Acute Chest pain Acute
[2017-10-04] MEDS ORDERED: INSULIN REGULAR HUMAN 100 UNIT in NS 100 ML IV ONE (12:30)
[2017-10-04] MEDS ORDERED: MANNITOL 25% 12.5 GM/50 ML VIAL IVP ONE (12:30)
[2017-10-04] MEDS ORDERED: ceFAZolin 2 GM/SWFI 2 GM/20 ML SYR IVP ONE (12:30)
[2017-10-04] MEDS ORDERED: NOREPINEPHRINE BITARTRATE 16 MG in NS 250 ML IV ONE (12:30)
[2017-10-04] MEDS ORDERED: MUPIROCIN 2% 22 GM OINT NS ONE (12:30)
[2017-10-04] MEDS ORDERED: SODIUM BICARBONATE 20 MEQ, LIDOCAINE 1% 10 ML in NORMOSOL-R 1,000 ML MISC ONE (12:30)
[2017-10-04] MEDS ORDERED: niCARdipine/NACL 200 ML IV SCH (12:30)
[2017-10-04] MEDS ORDERED: CITRATE DEXTROSE SOLN 500 ML BAG MISC ONE (12:30)
[2017-10-04] MEDS ORDERED: PHENYLEPHRINE HCL 50 MG in NS 250 ML IV ONE (12:30)
[2017-10-04] MEDS ORDERED: TRANEXAMIC ACID 1,000 MG in NS (SYRINGE) 50 ML IV ONE (12:30)
[2017-10-04] MEDS ORDERED: MIDAZOLAM 2 MG/2 ML VIAL ONE ×3 (14:10→14:32)
[2017-10-04] MEDS ORDERED: MIDAZOLAM 2 MG/2 ML VIAL IVP ONE (14:13)
--- NOTE | 2017-10-04 14:17 | PDANEPAE ---
ANE History of Present Illness s/f AVR, ROOT, MAZE ANE Past Medical History - Cardiovascular History Hx Arrhythmias: Yes Hx CHF / Valvular Disease: Yes Cardiovascular History Comment: bicuspid Ao Valve, severe , parox A-fib - Pulmonary History Hx Oxygen in Use at Home: No Hx Sleep Apnea: No Sleep Apnea Screening Result - Last Documented: Positive - Endocrine History Hx Diabetes: No ANE Review of Systems Review of Systems: - Exercise capacity Exercise capacity: >=4 METS ANE Patient History - Allergies Allergies/Adverse Reactions: bee stings Allergy (Uncoded 10/03/17 11:12) - Home Medications Home medications: home medication list seen and reviewed Home Medications: NK [No Known Home Meds] 10/03/17 [Last Taken Unknown] - NPO status NPO Status: no food or drink >8 hours NPO Since - Liquids (Date): 10/03/17 NPO Since - Liquids (Time): 02:00 NPO Since - Solids (Date): 10/03/17 NPO Since - Solids (Time): 12:00 - Anes Hx Anes Hx: no prior problems - Smoking Hx Smoking Status: Never smoked - Alcohol Use Alcohol Use: Occasionally - Family Anes Hx Family Anes Hx: none ANE Labs/Vital Signs - Labs Result Diagrams: 10/04/17 05:55 10/04/17 05:55 - Vital Signs Blood Pressure: 129/76 Heart Rate: 69 Respiratory Rate: 14 O2 Sat (%): 93 Height: 190.5 cm Weight: 110 kg ANE Physical Exam - Airway Neck exam: FROM Mallampati Score: Class 1 Mouth exam: normal dental/mouth exam - Pulmonary Pulmonary: no respiratory distress - Cardiovascular Cardiovascular: regular rate and rhythym - ASA Status ASA Status: II ANE Anesthesia Plan Anesthesia Plan: general endotracheal anesthesia Lines/Monitors: arterial line, central line, GEOVANI
[2017-10-04] MEDS ORDERED: PROPOFOL/EMULSION 500 MG/50 ML BOTTLE IV ONE ×2 (14:32→16:38)
[2017-10-04] MEDS ORDERED: REMIFENTANIL HCL 1 MG VIAL ONE ×2 (14:32→16:37)
[2017-10-04] MEDS ORDERED: fentaNYL 250 MCG/5 ML INJ ONE (14:32)
[2017-10-04] MEDS ORDERED: ROCURONIUM 100 MG/10 ML VIAL ONE (14:35)
[2017-10-04] MEDS ORDERED: PHENYLEPHRINE HCL 100 MCG/ML SYR ONE ×3 (14:36→20:39)
[2017-10-04] MEDS ORDERED: DEXAMETHASONE 4 MG/ML VIAL ONE ×2 (14:36)
[2017-10-04] MEDS ORDERED: LR 1,000 ML IV ONE (14:37)
[2017-10-04] MEDS ORDERED: KETOROLAC 30 MG/1 ML SDV ONE ×2 (14:37→19:53)
[2017-10-04] MEDS ORDERED: ONDANSETRON 4 MG/2 ML VIAL ONE (14:37)
[2017-10-04] MEDS ORDERED: LIDOCAINE HCL 160 MG/4 ML LTA KIT TP ONE (14:45)
[2017-10-04] MEDS ORDERED: MAGNESIUM SULF 2 GM/WATER 50 ML BAG IV ONE (15:25)
[2017-10-04] MEDS ORDERED: MINERAL OIL 10 ML VIAL ONE (17:40)
[2017-10-04] MEDS ORDERED: DEXMEDETOMIDINE/NS 4MCG/ML 50 ML BTL IV ONE ×2 (18:29→21:51)
--- NOTE | 2017-10-04 19:23 | HOSPPROG ---
Hospitalist Progress Note Assessment/Plan: This patient was not seen by hospital medicine service today due to being in the operating room for valve replacement. He is just getting ready to come out of the operating room. He has had as I understand no significant complications thus far. This no other significant medical issues is anticipated that he will not need internal medicine to continue following. Will check in with Dr. Morgan in the morning and do chart checks. Please call hospital Medicine if further consultation her internal medicine care as needed Objective: Vital Signs Temp Pulse Resp BP Pulse Ox 36.8 C 69 14 129/76 H 93 10/04/17 14:35 10/04/17 14:35 10/04/17 14:35 10/04/17 14:35 10/04/17 14:35 Laboratory Results 10/04/17 05:55 10/04/17 05:55 10/03/17 10/04/17 10/05/17 06:59 06:59 06:59 Intake Total 1250 Balance 1250 PT 12.6 SEC (12.0-15.0) 10/03/17 07:25 INR 0.95 (0.83-1.16) 10/03/17 07:25 ICD10 Worksheet Patient Problems: Problems Problem Status Onset Atrial fibrillation Acute Chest pain Acute
[2017-10-04] MEDS ORDERED: fentaNYL 100 MCG/2 ML INJ ONE (20:15)
[2017-10-04] MEDS ORDERED: SODIUM CL NASAL 45 ML BTL EACHNARE PRN (20:17)
[2017-10-04] MEDS ORDERED: fentaNYL 100 MCG/2 ML INJ IVP PRN (20:17)
[2017-10-04] MEDS ORDERED: POLYETHYLENE GLYCOL 3350 17 GM PKT PO PRN (20:17)
[2017-10-04] MEDS ORDERED: MAGNESIUM HYDROXIDE 30 ML UDCUP PO PRN (20:17)
[2017-10-04] MEDS ORDERED: POTASSIUM Cl (KCl) 50 ML IV PRN (20:17)
[2017-10-04] MEDS ORDERED: HYDROCODONE/APAP 5/325 TAB PO PRN (20:17)
[2017-10-04] MEDS ORDERED: LACTULOSE 20 GM/30 ML UDCUP PO PRN (20:17)
[2017-10-04] MEDS ORDERED: PANTOPRAZOLE SODIUM 40 MG VIAL IVP ONE (20:17)
[2017-10-04] MEDS ORDERED: ACETAMINOPHEN 650 MG SUPP PR PRN (20:17)
[2017-10-04] MEDS ORDERED: CEPACOL LOZENGE PO PRN (20:17)
[2017-10-04] MEDS ORDERED: D50W 25 GM/50 ML SYR IVP PRN (20:17)
[2017-10-04] MEDS ORDERED: MEPERIDINE 25 MG/ML SYR IVP PRN (20:17)
[2017-10-04] MEDS ORDERED: MAGNESIUM SULF 2 GM/WATER 50 ML IV ONE (20:17)
[2017-10-04] MEDS: PHENYLEPHRINE HCL 100 MCG/ML SYR IVP PRN ×6 (20:20→21:30)
[2017-10-04] MEDS ORDERED: INSULIN REGULAR HUMAN 100 UNIT in NS 100 ML IV SCH (20:30)
[2017-10-04] MEDS ORDERED: NS 1,000 ML IV SCH (20:30)
[2017-10-04] MEDS ORDERED: ALBUMIN 5% 500 ML BOTTLE IV ONE (20:52)
[2017-10-04] MEDS: ceFAZolin 2 GM/SWFI 2 GM/20 ML SYR IVP SCH (21:45)
[2017-10-04] MEDS: ALBUMIN 5% 250 ML IV PRN (21:47)
[2017-10-04] MEDS ORDERED: DEXMEDETOMIDINE IN 0.9 % NACL 50 ML IV SCH (22:00)
[2017-10-04] MEDS ORDERED: ceFAZolin 2 GM/DEXTROSE 100 ML IV SCH (22:00)
[2017-10-04] MEDS ORDERED: NOREPINEPHRINE BITARTRATE 16 MG in NS 250 ML IV SCH (23:16)
[2017-10-04] MEDS ORDERED: ALBUMIN 5% 500 ML IV ONE (23:30)
[2017-10-04] MEDS: MUPIROCIN 2% 22 GM OINT NS SCH (23:51)
[2017-10-04] MEDS: KETOROLAC 30 MG/1 ML SDV IVP SCH (23:52)
[2017-10-05] MEDS: ALBUMIN 5% 250 ML IV PRN ×2 (00:23→04:56)
--- NOTE | 2017-10-05 00:31 | GOP ---
[f rep st] OPERATIVE REPORT DATE OF OPERATION: 10/04/2017 SURGEON: Milton Vega DO METAL SORTER: Edilia Balderas PA-C. ANESTHESIOLOGIST: Sina Munguia MD PREOPERATIVE DIAGNOSIS: Congestive heart failure with longstanding persistent atrial fibrillation. POSTOPERATIVE DIAGNOSIS: Congestive heart failure with longstanding persistent atrial fibrillation. PROCEDURE PERFORMED: 1. Replacement of aortic valve with #27 Magna bioprosthesis. 2. Aortoplasty of the outflow tract for enlargement with bovine pericardium. 3. Mcarthur Maze 4 with radiofrequency, cryoablation, and sensing and testing. 4. Left atrial appendage occlusion with AtriClip. FINDINGS: Patient presented in the ER with atrial fib with a rapid ventricular response and a histor y of progressive class 2 to class 3 congestive heart failure on admission. He was found to have crit ical aortic stenosis with associated aortic insufficiency, severe left ventricular hypertrophy with d iminished left ventricular function, and mild enlargement of his ascending aorta. He was consented f or surgery with consideration to replacing his ascending aorta. However, after adjusting for his bod y surface area, I felt that it was actually a relatively normal aorta for a gentleman his age and siz e, measuring 4.2 cm intraoperatively. This gentleman was 110 kg, and 6 foot 6. DESCRIPTION OF PROCEDURE: He was brought to the operating room, intubated. Monitoring lines were pl aced. He was prepped and draped in a sterile classical manner. Transesophageal echo was performed b y Dr. Munguia. Sternotomy was performed. He was heparinized and cannulated with bicaval cannulae and tapes, as well as antegrade cardioplegia and retrograde cardioplegia. Initially, we went on bypass a nd encircled both pulmonary veins after testing him and confirming that there was no evidence of exit or entrance block. We then ablated multiple times with multiple lesion sets being less than 5 secon ds before transmurality was confirmed. Overlapping lesion sets on both sides confirmed lack of condu ctivity with both sensing and pacing at the completion. We then arrested the heart. We marked the terminus of the left and right coronary arteries over the coronary sinus with methylene blue. The left atrium was then opened. We then performed a roof line because of the depth and difficulty of placing the clamp inside the atrium. We then performed a roof and floor line utilizing cryoablation in the roof and radiofrequency ablation on the floor line. Mu ltiples lesion sets were performed until the transmurality was confirmed at less than 5 seconds. We then performed the coronary sinus lesion connecting it to the right inferior pulmonary vein line, and we then performed the mitral isthmus lesion in the same fashion, overlying the coronary sinus les ion. The retrograde catheter had been pulled back during that. We then closed the left atrium. The left atrial appendage was opened and the clamp was placed across the Coumadin ridge into the left mills perior pulmonary vein with multiple ablation lines performed. An AtriClip was then placed to occlude the left atrial appendage. We then evaluated the aorta and felt that it was only 4.2 cm in its widest dimension externally and g iven this gentleman's large size, I felt that it did not warrant replacement. His ventricle was very thick and quite enormous externally to merit to observation. A standard aortotomy was performed and severely calcified, abnormally deformed aortic valve, again with extremely heavy calcification exten ding into the septum and almost the mitral valve from the aortic anulus, was extensively d ebrided. No further calcium was left. There was a defect with slight detachment of the mitral anulu s from the aortic anulus following removal of the calcium; this was approximated with a 4-0 Prolene s uture horizontal mattress without difficulty. We then placed circumferential pledgeted mattress sutu res and seated a 27 mm Magna valve in a supra-annular position without difficulty. Because of the si ze of the valve, the sinuses would have been closed under tension. For that reason, I put in a bovin e pericardial patch to close the aortotomy, removing any tension on the anastomosis for safety, and i f he ever needed a TAVR inside that valve, he would need larger sinuses. We then removed the cross-clamp with suction on the LV sump and aortic vent in Trendelenburg, and per formed a right-sided Maze, performing an incisional vertical atriotomy with a connecting isthmus lesi on utilizing cryo for 2 minutes. We then did a free wall lesion with radiofrequency and the superior and inferior vena cava line with radiofrequency. The atrium was closed in a two-layer fashion. Spo ntaneous cardiac activity was noted to resume. He was de-aired through the ascending aorta, LV apex and with an LV sump intermittently. When no further air was identified, he was easily weaned from by pass. The heparin was reversed with protamine. The cannula was removed and oversewn. Two ventricul ar pacing wires, 2 mediastinal drains were placed. The thymic fat and pericardium were closed. Ches t was closed in standard fashion. Patient was returned to ICU in stable condition. /[id number]/MODL
[2017-10-05] MEDS: METOCLOPRAMIDE 10 MG/2 ML VIAL IVP PRN ×2 (02:33→11:40)
[2017-10-05 04:44] LABS: INR 1.61 (0.83-1.16); PROTIME(PATIENT) 19.3 SEC (12.0-15.0)
[2017-10-05] MEDS: KETOROLAC 30 MG/1 ML SDV IVP SCH (05:29)
[2017-10-05] MEDS: ceFAZolin 2 GM/SWFI 2 GM/20 ML SYR IVP SCH ×3 (05:30→19:33)
[2017-10-05] MEDS ORDERED: HEPARIN 5,000 UNIT/0.5 ML SYR SC SCH (06:00)
--- NOTE | 2017-10-05 06:48 | SOAPPROG ---
SOAP Progress Note Assessment/Plan: Assessment: POD#1 AVR #27 Magna bioprosthesis, bovine pericardial patch aortoplasty, Mcarthur Maze IV BAV with severe and mildly dilated aorta - s/p tissue AVR with patch aortoplasty. Aorta (indexed to size) not felt to warrant replacement. Antithrombotic prophylaxis as per Maze. PAF - Spontaneous conversion to SR preop. Postop CM4 rhythm initially junctional escape, recovering SB/SR overnoc. Antithrombotic prophylaxis with Coumadin, target INR 2-3, duration TBD. Acute diastolic CHF - Class III sx preop, exacerbated by and AF. Postop hemodynamic stability on low dose levo. No significant fluid overload. Successfully extubated last night. Staggered intro of heart failure regimen when appropriate. MIKAEL - Preop Cr 1.0. Early postop bump to peak of 1.9. Nonoliguric. Likely prerenal (relatively low BP and NSAID). Renal perfusion pressures augmented with levo. Toradol stopped. Follow. Acute expected blood loss anemia with thrombocytopenia and mild coagulopathy - Stable. No transfusions required. No evidence active bleeding. Care with VTE prophylaxis/anticoag while platelets depressed. Plan: Routine POD#1 orders re orals and mobility. D/C Toradol. Adjust Ancef dosing. Restart levo at 2 mcg/min for MAP > 70. Colloid prn CVP < 10. Keep vuong for accurate I/Os. Cont VVI backup @ 50. Keep CTs to suction at rest. 10/05/17 06:43 Subjective: Sore and tired. No nausea or dizziness. Adequate pain control. Objective: Vital Signs Temp Pulse Resp BP Pulse Ox 37.4 C 65 19 94/58 L 95 10/05/17 05:00 10/05/17 06:00 10/05/17 06:00 10/05/17 06:00 10/05/17 06:00 Laboratory Results 10/05/17 04:20 10/05/17 04:20 10/04/17 10/05/17 10/06/17 05:59 05:59 05:59 Intake Total 1250 1786.6 Output Total 1620 Balance 1250 166.6 PT 19.3 SEC (12.0-15.0) H 10/05/17 04:20 INR 1.61 (0.83-1.16) H 02/14/18 04:20 Extubated before midnight without incident. Levo up to 4mcg for SBP > 90. Down to 2 mcg early this am, and currently off. Holding SR 60s last few hrs. No sig CTOP. CXR-> Small left apical PTX, min pulm vasc congestion. Balanced I/Os. Elev INR as expected. Platelet count a bit lower than expected. No further rise in mildy elev Cr. Physical Exam - Physical Exam General Appearance: alert, no apparent distress Respiratory: chest non-tender (no subq air), crackles (bilat bases), other (CTs y-d to pleurovac, no tidal, no air leak) Cardiac/Chest: regular rate, rhythm, other (Sternotomy CDI. Vwire intact.) Abdomen: normal bowel sounds, non-tender, soft Skin: warm/dry Extremities: swelling (trace) ICD10 Worksheet Patient Problems: Problems Problem Status Onset Acute blood loss anemia Acute Atrial fibrillation Acute Chest pain Acute Mild dilation of ascending aorta Acute S/P ablation of atrial fibrillation Acute ~10/04/17 S/P aortic valve replacement and aortoplasty Acute ~10/04/17 Severe calcific aortic valve stenosis Acute
--- NOTE | 2017-10-05 07:07 | POSTANESTH ---
Post Anesthetic Evaluation Cardiovascular Status: Other, See Comment (emely zaldivar at 2) Respiratory Status: Tx Decrease in SpO2 (3l by nc) Level of Consciousness/Mental Status: Can Participate in Eval Pain Control: Adequate, Prn Tx Ordered Nausea/Vomiting Control: Adequate, Prn Tx Ordered Complications Possibly Related to Anesthesia: None Noted
[2017-10-05] MEDS ORDERED: ALBUMIN 5% 250 ML IV ONE (08:30)
[2017-10-05] MEDS ORDERED: ASPIRIN 81 MG CHEWABLE TAB TUBE PRN (09:00)
[2017-10-05] MEDS: MUPIROCIN 2% 22 GM OINT NS SCH ×2 (09:53→19:33)
[2017-10-05] MEDS: PANTOPRAZOLE SODIUM 40 MG TAB PO SCH (09:58)
[2017-10-05] MEDS ORDERED: ALBUMIN 5% 500 ML BOTTLE IV ONE (12:49)
[2017-10-05] MEDS ORDERED: ALBUMIN 5% 500 ML IV ONE (13:00)
--- NOTE | 2017-10-05 14:18 | GCON ---
[f rep st] CONSULTATION PULMONARY/CRITICAL CARE CONSULTATION. DATE OF CONSULTATION: 10/05/2017 REFERRING PHYSICIAN: Milton Vega DO REASON FOR CONSULTATION: Evaluation and management of pneumothorax and sleep apnea. HISTORY: The patient is a 56-year-old male who was admitted to the hospital 2 days ago with sensatio n that his heart was racing and palpitations on the morning of admission. Prior to that he had had s everal weeks of increased shortness of breath which had been occurring for a few years, but noticeabl y increased in the few weeks prior to admission. This has limited his ability to do aerobic exercise . Additionally, his has witnessed apneas for the last 6 years, and the patient has had self-maynor kenings due to apneas. These occur when he sleeps on his back, and he no longer sleeps on his back, but also sometimes occur early in the morning when he sleeps on his side. He usually feels refreshed after 6-7 hours of sleep, but sometimes takes naps in the afternoon. The patient currently is havin g postoperative chest pain. This has limited his ability to take deep breaths. He also had some vom iting, some gagging/retching this morning, and this was accompanied by a syncopal episode. He curren tly denies any nausea. PAST MEDICAL HISTORY: Aortic stenosis. He has been known to have aortic stenosis lifelong, but had not had recent followup. MEDICATIONS: None. ALLERGIES: None. 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 He never smoked, and drinks alcoh ol just occasionally. FAMILY HISTORY: Unremarkable. REVIEW OF SYSTEMS: A 10-point review of systems adds nothing to the History of Present Illness. PHYSICAL EXAMINATION: GENERAL: The patient is awake. VITAL SIGNS: His blood pressure is 123/69 wi th a heart rate of 65. He is afebrile. Oxygen saturations are 95% on 2 L. HEENT: Normocephalic an d atraumatic. No icterus. NECK: No adenopathy. Trachea is midline. CHEST: He has some rales in b oth bases. CARDIAC: Regular rate and rhythm without murmur. ABDOMEN: Soft, nontender. Bowel sounds are present. EXTREMITIES: No clubbing, cyanosis, or edema. NEURO: The patient is awake and alert. He is able t o move all extremities, but his movements are somewhat limited by his chest pain. LABORATORY: Chemistry group was remarkable for creatinine of 1.8, up from 1.0 preoperatively, but do wn from 1.9 earlier in the morning. A glucose level is 132. Hemoglobin is 10.4, white blood count i s 13.3, platelet count is 56; it was 177 preoperatively. An INR is 1.6. An arterial blood gas last night showed a pH of 7.38 with a pO2 of 69, a CO2 of 34, and a bicarbonate of 20. Chest x-ray shows a small left pneumothorax that is new from his postoperative film. He has improved , but still persistent bilateral interstitial edema. Images reviewed by me. ASSESSMENT: 1. Left pneumothorax. This is new since his immediate postoperative film. Stable late morning comp ared to the physical chemist x-ray. Patient does have moderate oxygen needs, but these have been stable , and are more likely due to splinting/atelectasis from his pain as well as some interstitial pulmona ry edema. 2. Sleep apnea. The patient has history of witnessed apneas as well as self-awakenings from apneas. Witnessed apneas have been seen both by his at home as well as by nursing here in the hospital . The patient has not been previously diagnosed with sleep apnea. 3. Acute kidney injury. The patient's creatinine is elevated, likely prerenal related to a low outp ut state from his aortic stenosis and then his open heart surgery. His urine output is picking up. His central venous pressure is in the normal range at 8, but the patient likely needs a higher fillin g pressure due to his left ventricular hypertrophy seen on his echocardiogram and his immediate posto perative state. 4. Hyperglycemia, this is mild. The patient has no prior history of diabetes. 5. Thrombocytopenia. The patient's platelet count started out a bit low, and has now fallen postope ratively. RECOMMENDATIONS: 1. Fluid bolus as per Dr. Vega. 2. Continue supplemental oxygen to keep oxygen saturations in the high-normal range. This may help speed resolution of his pneumothorax if the patient no longer has a bronchopleural fistula. 3. CPAP can be used at night. Upon discharge, the patient should have a sleep study, and then treat ment can be initiated. 4. Follow blood sugars, creatinine, and platelets. /[id number]/MODL
--- NOTE | 2017-10-05 16:03 | ASMTCMCOM ---
CM Note CM Note Notes: No recommendations from PT/OT at this time. Orders for cardiac rehab eval as well. Dr. Dotson has recommended a sleep study for patient upon d/c for sleep apnea. CM will follow. Date Signed: 10/05/2017 04:02 PM Electronically Signed By:Camille Centeno LCSW
--- NOTE | 2017-10-05 17:43 | CPEKG ---
Heart Rate: 56 RR Interval: 1071 P-R Interval: 180 QRSD Interval: 94 QT Interval: 444 QTC Interval: 429 P Zavalla: 95 QRS Zavalla: 9 T Wave Zavalla: 180 EKG Severity - ABNORMAL ECG - EKG Impression: SINUS RHYTHM EKG Impression: PAIRED VENTRICULAR PREMATURE COMPLEXES EKG Impression: LVH WITH SECONDARY REPOLARIZATION ABNORMALITY Electronically Signed By: Chris Kwong 06-Oct-2017 07:26:18
[2017-10-05] MEDS: ACETAMINOPHEN 325 MG TAB PO PRN (22:03)
[2017-10-06] MEDS: ACETAMINOPHEN 325 MG TAB PO PRN ×4 (02:31→23:06)
[2017-10-06 05:35] LABS: PLATELET COUNT 50 10^3/uL (150-400)
[2017-10-06 05:47] LABS: INR 1.34 (0.83-1.16); PROTIME(PATIENT) 16.8 SEC (12.0-15.0)
--- NOTE | 2017-10-06 07:17 | SOAPPROG ---
SOAP Progress Note Assessment/Plan: POD#2 AVR #27 Magna bioprosthesis, bovine pericardial patch aortoplasty, Mcarthur Maze IV BAV with severe and mildly dilated aorta - stable s/p tissue AVR with patch aortoplasty. PAF s/p CM 4 - post-op JR/SR. Antithrombotic prophylaxis with Coumadin, target INR 2-3, duration dependent on rhythm stability. Beta-jessica for AF prophylaxis started this morning. External pacer set to VVI. Acute diastolic class III CHF - Significant fluid overload. Lasix and beta- jessica ordered. MIKAEL - Cr trending higher. UOP sufficient without metabolic derangements. Lasix 40 mg x 1 ordered. Will monitor. Acute expected blood loss anemia - no need for blood transfusions. Thrombocytopenia - platelets trending lower. Precautionary HIT panel sent this morning. Heparin on hold. Subjective: Pain well-controlled. Denies SOB. Objective: Vital Signs Temp Pulse Resp BP Pulse Ox 36.8 C 60 16 152/78 H 100 10/06/17 00:00 10/06/17 05:54 10/06/17 05:54 10/06/17 05:54 10/06/17 05:54 Laboratory Results 10/06/17 05:08 10/06/17 05:08 10/05/17 10/06/17 10/07/17 05:59 05:59 05:59 Intake Total 1786.6 2131.8 Output Total 1620 1620 Balance 166.6 511.8 PT 16.8 SEC (12.0-15.0) H 10/06/17 05:08 INR 1.34 (0.83-1.16) H 10/06/17 05:08 Physical Exam - Physical Exam General Appearance: WD/WN, alert, no apparent distress EENT: No scleral icterus (R), No scleral icterus (L) Neck: normal inspection Respiratory: normal breath sounds, No respiratory distress Cardiac/Chest: bradycardia Abdomen: non-tender, organomegaly, No distended Skin: normal color, warm/dry Extremities: pedal edema Neuro/Psych: no motor/sensory deficits, alert, oriented x 3, depressed affect ICD10 Worksheet Patient Problems: Problems Problem Status Onset Acute blood loss anemia Acute Atrial fibrillation Acute Chest pain Acute Mild dilation of ascending aorta Acute S/P ablation of atrial fibrillation Acute ~10/04/17 S/P aortic valve replacement and aortoplasty Acute ~10/04/17 Severe calcific aortic valve stenosis Acute
[2017-10-06] MEDS ORDERED: FUROSEMIDE 40 MG/4 ML VIAL IVP ONE (08:32)
[2017-10-06] MEDS: PANTOPRAZOLE SODIUM 40 MG TAB PO SCH (08:57)
[2017-10-06] MEDS ORDERED: METOPROLOL TARTRATE 25 MG TAB PO SCH (09:00)
[2017-10-06] MEDS: METOCLOPRAMIDE 10 MG/2 ML VIAL IVP PRN (09:07)
[2017-10-06] MEDS: MUPIROCIN 2% 22 GM OINT NS SCH (09:15)
--- NOTE | 2017-10-06 12:11 | PDINTPN ---
Gre[facility]per Progress Note Assessment/Plan: Assessment/plan: 56 M presented 10/03/17 with palpitations and chest pain, found to have afib/RVR and critical . Afib self-converted but noted on echo, so underwent AVR, aortoplasty, and Maze procedure 10/03 without complication and extubated per protocol. * Critical , s/p AVR and hemodynamically stable * Afib- converted to NSR and s/p Maze procedure * MIKAEL- creatinine rising today without vuong, but patient reports good uop and would rather not have vuong. May have had ATN from hypotension and Afib. Watch uop closely with low threshold for catheter. * DENYS- preop symptoms suggestive and will need outpatient sleep study. OK for empiric CPAP now Subjective: Feels ok- improving pain control and denies sob, palpitations Objective: Vital Signs Temp Pulse Resp BP Pulse Ox 36.9 C 62 20 136/70 H 93 10/06/17 11:48 10/06/17 11:48 10/06/17 11:48 10/06/17 11:48 10/06/17 11:48 Laboratory Results 10/06/17 05:08 10/06/17 05:08 10/05/17 10/06/17 10/07/17 05:59 05:59 05:59 Intake Total 1786.6 2131.8 Output Total 1620 1620 500 Balance 166.6 511.8 -500 PT 16.8 SEC (12.0-15.0) H 10/06/17 05:08 INR 1.34 (0.83-1.16) H 10/06/17 05:08 Physical Exam - Physical Exam General Appearance: WD/WN, alert, no apparent distress EENT: PERRL/EOMI Neck: supple Respiratory: lungs clear, normal breath sounds, decreased breath sounds, No respiratory distress, No accessory muscle use Cardiac/Chest: regular rate, rhythm, other (incision clean and dry), No edema Abdomen: soft, No distended Skin: normal color, warm/dry, No cyanosis Lymphatic: no adenopathy Extremities: No pedal edema Neuro/Psych: alert, normal mood/affect, oriented x 3 ICD10 Worksheet Patient Problems: Problems Problem Status Onset Acute blood loss anemia Acute Atrial fibrillation Acute Chest pain Acute Mild dilation of ascending aorta Acute S/P ablation of atrial fibrillation Acute ~10/04/17 S/P aortic valve replacement and aortoplasty Acute ~10/04/17 Severe calcific aortic valve stenosis Acute
[2017-10-06] MEDS ORDERED: WARFARIN SODIUM 2.5 MG TAB PO ONE (16:00)
--- NOTE | 2017-10-06 16:24 | ASMTCMCOM ---
CM Note CM Note Notes: PT/OT are recommending inpatient rehab for patient. Patient has [place] BC so rehab will have to get auth to see if he is eligible.CM will follow. Date Signed: 10/06/2017 04:23 PM Electronically Signed By:Camille Centeno LCSW
[2017-10-06] MEDS ORDERED: PROTOCOL POTASSIUM 1 DOSE MISC PRN (16:27)
[2017-10-06] MEDS ORDERED: POTASSIUM Cl (KCl) 50 ML IV ONE (16:29)
[2017-10-06] MEDS: SENNOSIDES/DOCUSATE SODIUM TAB PO SCH (20:32)
[2017-10-07 04:24] LABS: INR 1.4 (0.83-1.16); PROTIME(PATIENT) 17.3 SEC (12.0-15.0)
[2017-10-07] MEDS: METOCLOPRAMIDE 10 MG/2 ML VIAL IVP PRN ×2 (05:53→21:04)
[2017-10-07] MEDS: ONDANSETRON 4 MG/2 ML VIAL IVP PRN ×2 (05:53→17:53)
--- NOTE | 2017-10-07 06:19 | SOAPPROG ---
SOAP Progress Note Assessment/Plan: POD#3 AVR #27 Magna bioprosthesis, bovine pericardial patch aortoplasty, Mcarthur Maze IV BAV with severe and mildly dilated aorta - stable s/p tissue AVR with patch aortoplasty. PAF s/p CM 4 - post-op JR/SR. Antithrombotic prophylaxis with Coumadin, target INR 2-3, duration dependent on rhythm stability. Beta-jessica for AF avoided d/ t predominate functional rhythm in 50s. External pacer set to VVI. Acute diastolic class III CHF - Significant fluid overload. Continue Lasix. MIKAEL - Cr 2.5 this morning. Injury likely plateaued. UOP sufficient without metabolic derangements. Avoid nephrotoxins. Monitor. Acute expected blood loss anemia - stable without the need for blood transfusions. Thrombocytopenia - platelets trending higher. Precautionary HIT panel sent this morning. Heparin on hold until > 100. Subjective: Feels slight nausea. Denies vomiting. +flatus. Haven't ambulated much since doesn't feel up to it. Denies pain/SOB. Objective: Vital Signs Temp Pulse Resp BP Pulse Ox 36.5 C 48 L 18 135/60 H 97 10/07/17 04:00 10/07/17 04:00 10/07/17 04:00 10/07/17 04:00 10/07/17 04:00 Laboratory Results 10/07/17 04:00 10/07/17 04:00 10/06/17 10/07/17 10/08/17 05:59 05:59 05:59 Intake Total 2131.8 1364 Output Total 1620 1705 Balance 511.8 -341 PT 17.3 SEC (12.0-15.0) H 10/07/17 04:00 INR 1.40 (0.83-1.16) H 10/07/17 04:00 Physical Exam - Physical Exam General Appearance: WD/WN, alert, no apparent distress EENT: No scleral icterus (R), No scleral icterus (L) Neck: normal inspection Respiratory: No respiratory distress Cardiac/Chest: bradycardia Abdomen: non-tender, soft, No distended Skin: normal color, warm/dry Extremities: No pedal edema Neuro/Psych: no motor/sensory deficits, alert, oriented x 3, depressed affect ICD10 Worksheet Patient Problems: Problems Problem Status Onset Acute blood loss anemia Acute Atrial fibrillation Acute Chest pain Acute Mild dilation of ascending aorta Acute S/P ablation of atrial fibrillation Acute ~10/04/17 S/P aortic valve replacement and aortoplasty Acute ~10/04/17 Severe calcific aortic valve stenosis Acute
[2017-10-07] MEDS: PANTOPRAZOLE SODIUM 40 MG TAB PO SCH (09:24)
[2017-10-07] MEDS: SENNOSIDES/DOCUSATE SODIUM TAB PO SCH ×2 (09:24→21:04)
[2017-10-07] MEDS: ACETAMINOPHEN 325 MG TAB PO PRN (09:25)
[2017-10-07] MEDS: traMADol 50 MG TAB PO PRN ×2 (12:14→18:15)
[2017-10-07] MEDS ORDERED: WARFARIN SODIUM 2.5 MG TAB PO ONE (16:00)
[2017-10-07] MEDS ORDERED: POTASSIUM CL 20 MEQ TAB PO ONE (17:03)
--- NOTE | 2017-10-07 20:25 | ECHO ---
[email or web address] [address] [address] Main: [phone] Fax: Transthoracic Echocardiogram Name: GERALD MULLER MR#: [id number] Study Date: 10/07/2017 Study Time: 07:51 AM Date of : 1960 Age: 56 year(s) Height: 190.5 cm (75 in.) Weight: 117.48 kg (259 lb.) BSA: 2.45 m2 Gender: Male Examination: Echo Indication: s/p AVR #27 Magna Image Quality: Technically Difficult Contrast: Requested by: Parish Olson BP: 135 mmHg/60 mmHg Heart Rate: 47 bpm Rhythm: Pacemaker rhythm Indication: s/p AVR #27 Magna Procedure Staff Braze Operator: Siena Dorsey [facility] Reading Physician: Leighton West Requesting Provider: Conclusions: Normal size left ventricle. Moderate concentric LV hypertrophy. Normal global systolic LV function. EF is 60 %. Normal size right ventricle. Normal RV function. The left atrium is normal in size. The right atrium is normal in size. The mitral valve is normal in appearance and function. Mild mitral valve regurgitation is present. The aortic valve is a bioprosthesis. Normal functioning aortic valve prosthesis. Trivial prosthesis regurgitation. Tricuspid valve not well visualized. There is no significant tricuspid valve regurgitation. Normal size ascending aorta measuring 3.7 cm. The IVC is dilated. No pericardial effusion. Measurements: Chambers Valvular Assessment AV/MV Valvular Assessment TV/PV Normal Normal Normal Name Value Range Name Value Range Name Value Range IVSd (2D): 1.4 cm (0.6 cm-1.1 AV Vmax: 1.99 m/s (1 m/s-1.7 PV Vmax: 1.05 m/s (0.6 m/s-0.9 cm) m/s) m/s) LVDd (2D): 5.8 cm (4.2 cm-5.9 AV maxP mmHg ( - ) PV PGmax: 4 mmHg ( - ) cm) AV meanP mmHg ( - ) LVDs (2D): 3.8 cm (2.1 cm-4 MV E Vmax: 0.73 m/s ( - ) cm) MV A Vmax: 0.23 m/s ( - ) Patient: GERALD MULLER Study Date: 10/07/2017 Page 1 of 2 07:51 AM LVPWd (2D): 1.2 cm (0.6 cm-1 MV E/A: 3.17 ( - ) cm) LVEF (MOD4): 60 % (>=55 %) RVDd(2D): 2.6 cm (1.9 cm-3.8 cmmm) Continued Measurements: Chambers Valvular Assessment AV/MV Name Value Name Value LADs: 4.6 cm MV DecTime: 233 m/s LADs Lon.1 cm LA Area: 19.9 cm2 LA Volume: 68 ml LA Volume Index: 27.8 ml/m2 Additional Vessels Name Value Ao Ascendin.7 cm Findings: Left Ventricle: Normal size left ventricle. Moderate concentric LV hypertrophy. Normal global systolic LV function. EF is 60 %. No regional wall motion abnormality. Unable to assess diastolic dysfunction. Right Ventricle: Normal size right ventricle. Normal RV function. Left Atrium: The left atrium is normal in size. Right Atrium: The right atrium is normal in size. Mitral Valve: The mitral valve is normal in appearance and function. Mild mitral valve regurgitation is present. No mitral stenosis is present. Aortic Valve: The aortic valve is a bioprosthesis. Normal functioning aortic valve prosthesis. The prosthetic aortic valve is normal. No prosthesis stenosis. Trivial prosthesis regurgitation. Tricuspid Valve: Tricuspid valve not well visualized. There is no significant tricuspid valve regurgitation. Pulmonic Valve: Pulmonary valve not well visualized. There is no pulmonic regurgitation seen. Aorta: Normal size ascending aorta measuring 3.7 cm. IVC: The IVC is dilated. Pericardium: No pericardial effusion. (No Signature Object) Patient: GERALD MULLER Study Date: 10/07/2017 Page 2 of 2 07:51 AM [id number]
[2017-10-08 06:15] LABS: INR 1.91 (0.83-1.16)
[2017-10-08] MEDS ORDERED: POTASSIUM CL 20 MEQ TAB PO ONE (07:34)
[2017-10-08] MEDS ORDERED: FUROSEMIDE 40 MG/4 ML VIAL IVP ONE (07:34)
--- NOTE | 2017-10-08 07:37 | SOAPPROG ---
SOAP Progress Note Assessment/Plan: POD#4 AVR #27 Magna bioprosthesis, bovine pericardial patch aortoplasty, Mcarthur Maze IV BAV with severe and mildly dilated aorta - stable s/p tissue AVR with patch aortoplasty. DVT prophylaxis with SCDs/Coumadin. PAF s/p CM 4 - post-op JR/SR. Antithrombotic prophylaxis with Coumadin, target INR 2-3, duration dependent on rhythm stability. Beta-jessica for AF avoided d/ t predominate junctional rhythm in 50s. External pacer set to VVI. Acute diastolic class III CHF - Significant fluid overload. Continue Lasix. MIKAEL - Cr trending lower at 1.9 this morning. Avoid nephrotoxins. Monitor. Acute expected blood loss anemia - stable without the need for blood transfusions. Thrombocytopenia - platelets trending higher. Precautionary HIT negative. 10/08/17 07:37 10/08/17 09:47 Subjective: Feels much better today. Denies SOB/CP. Ambulating without problems. Objective: Vital Signs Temp Pulse Resp BP Pulse Ox 36.6 C 63 16 122/75 H 95 10/08/17 04:00 10/08/17 04:00 10/08/17 04:00 10/08/17 04:00 10/08/17 04:00 Laboratory Results 10/08/17 05:55 10/08/17 05:55 10/07/17 10/08/17 10/09/17 05:59 05:59 05:59 Intake Total 1364 1400 Output Total 1705 1100 Balance -341 300 PT 22.0 SEC (12.0-15.0) H 10/08/17 05:55 INR 1.91 (0.83-1.16) H 10/08/17 05:55 Physical Exam - Physical Exam General Appearance: WD/WN, alert, no apparent distress EENT: No scleral icterus (R), No scleral icterus (L) Neck: normal inspection Respiratory: No respiratory distress Cardiac/Chest: bradycardia Abdomen: non-tender, soft, No distended Skin: normal color, warm/dry Extremities: pedal edema Neuro/Psych: no motor/sensory deficits, alert, normal mood/affect, oriented x 3 ICD10 Worksheet Patient Problems: Problems Problem Status Onset Acute blood loss anemia Acute Atrial fibrillation Acute Chest pain Acute Mild dilation of ascending aorta Acute S/P ablation of atrial fibrillation Acute ~10/04/17 S/P aortic valve replacement and aortoplasty Acute ~10/04/17 Severe calcific aortic valve stenosis Acute
[2017-10-08] MEDS: PANTOPRAZOLE SODIUM 40 MG TAB PO SCH (08:11)
[2017-10-08] MEDS: METOCLOPRAMIDE 10 MG/2 ML VIAL IVP PRN (08:15)
[2017-10-08] MEDS: SENNOSIDES/DOCUSATE SODIUM TAB PO SCH ×2 (10:06→21:06)
[2017-10-08] MEDS: ASPIRIN 81 MG CHEWABLE TAB PO SCH (11:17)
--- NOTE | 2017-10-08 11:34 | PDCARPN ---
Cardiology Progress Note Assessment/Plan: Assessment/plan: 56-year-old male with bicuspid aortic valve and aortic stenosis. Status post bioprosthetic aortic valve replacement with #27 magna prosthesis, patch aortoplasty, and Mcarthur Maze 4 on October 04. He has intermittent Guy arrhythmias. He has mostly been in sinus rhythm. He is not on beta-blockers. 1. Guy arrhythmias: Intermittent pacing from his epicardial wires as well as short periods of junctional rhythm. Check 12 lead EKG today. Would wait another day or 2 to see if he may ultimately require permanent pacemaker. His warfarin has been held in case he does need a pacemaker. 2. Atrial fibrillation: He will ultimately be on Coumadin. Has not had atrial fibrillation in the past couple of days. 3. Status post bioprosthetic aortic valve replacement: Functioning normally on postoperative echocardiogram 4. Acute kidney injury: Slowly improving. 5. Postoperative anemia and thrombocytopenia: Slowly improving. Hit panel is negative. 6. Heart failure preserved ejection fraction and LVH: Diuresing well. 30 min was spent in chart review and direct patient care. 10/08/17 11:34 Subjective: He is mildly dyspneic, more sensation of having hard time taking a deep breath. Pain is fairly well controlled. He has a little bit lightheaded when he 1st gets up and also with ambulation. Reviewed/Discussed With: other (CT surgery) Objective: Vital Signs (8 Hrs) Temp Pulse Resp BP Pulse Ox 10/08/17 08:00 36.5 C 68 16 144/93 H 95 10/08/17 04:00 36.6 C 63 16 122/75 H 95 Intake/Output (24 Hrs) 10/07/17 10/08/17 10/09/17 05:59 05:59 05:59 Intake Total 1364 1400 570 Output Total 1705 1100 1870 Balance -341 300 -1300 Intake: Oral (ml) 1075 1400 570 IV Intake (ml) 289 Output: Urine (ml) 1450 1100 1870 Urinal 1450 1100 1870 Chest Tube Output (ml) 255 Location 1 Mediastinal 170 Location 2 Pleural 85 Other: Weight 116.6 kg 115.7 kg Number of Voids Toilet 1 Urinal 2 3 Number of Stools Urinal 1 Bladder Scan Volume (ml) Urinal 57 No acute distress JVP less than 10. Regular rate and rhythm without murmur or gallop Tubular breath sounds at both bases. No lower extremity edema Result Diagrams: 10/08/17 05:55 10/08/17 05:55 EKG: reviewed from 10/05:. Sinus rhythm. LVH with repolarization abnormalities. Telemetry: Mostly sinus rhythm. Short periods of junctional rhythm around 343 this morning. Short periods of ventricular pacing also at that time. ICD10 Worksheet Patient Problems: Problems Problem Status Onset Acute blood loss anemia Acute S/P ablation of atrial fibrillation Acute ~10/04/17 S/P aortic valve replacement and aortoplasty Acute ~10/04/17 Mild dilation of ascending aorta Acute Severe calcific aortic valve stenosis Acute Chest pain Acute Atrial fibrillation Acute
[2017-10-08] MEDS: HEPARIN 5,000 UNIT/0.5 ML SYR SC SCH ×2 (13:30→22:25)
--- NOTE | 2017-10-08 14:16 | CPEKG ---
Heart Rate: 74 RR Interval: 811 P-R Interval: 140 QRSD Interval: 108 QT Interval: 408 QTC Interval: 453 P [place]: 39 QRS [place]: 6 T Wave [place]: 146 EKG Severity - ABNORMAL ECG - EKG Impression: SINUS RHYTHM EKG Impression: PROBABLE LVH WITH SECONDARY REPOL ABNRM Electronically Signed By: Chris Kwong 09-Oct-2017 09:52:58
[2017-10-08] MEDS ORDERED: POTASSIUM CL 20 MEQ TAB PO SCH (15:00)
[2017-10-08] MEDS ORDERED: WARFARIN SODIUM 2.5 MG TAB PO ONE (16:00)
[2017-10-08] MEDS ORDERED: WARFARIN SODIUM 1 MG TAB PO ONE (16:00)
[2017-10-08] MEDS: FUROSEMIDE 40 MG/4 ML VIAL IVP SCH (16:02)
--- NOTE | 2017-10-08 16:58 | ASMTCMCOM ---
CM Note CM Note Notes: PT/OT continue to recommend inpt rehab. Discussed with RN who didn't feel pt will need that LOC and would continue to improve. Inpt rehab eval order will need to be placed. Pt may need pacer. Date Signed: 10/08/2017 04:58 PM Electronically Signed By:CJ Alejandra
[2017-10-08] MEDS: POTASSIUM Cl (KCl) 50 ML IV SCH ×2 (20:41→22:24)
[2017-10-09] MEDS: POTASSIUM Cl (KCl) 50 ML IV SCH (00:20)
[2017-10-09] MEDS: HEPARIN 5,000 UNIT/0.5 ML SYR SC SCH (06:06)
[2017-10-09 06:32] LABS: INR 1.88 (0.83-1.16); PROTIME(PATIENT) 21.7 SEC (12.0-15.0)
--- NOTE | 2017-10-09 07:26 | SOAPPROG ---
SOAP Progress Note Assessment/Plan: POD#5 AVR #27 Magna bioprosthesis, bovine pericardial patch aortoplasty, Mcarthur Maze IV BAV with severe and mildly dilated aorta - stable s/p tissue AVR with patch aortoplasty. DVT prophylaxis with SCDs/Heparin SQ. PAF s/p CM 4 - post-op JR/SR. Antithrombotic prophylaxis with Coumadin, target INR 2-3, duration dependent on rhythm stability. Beta-jessica for AF avoided d/ t predominate junctional rhythm in 50s. External pacer set to VVI. Cardiology on board for PPM evaluation. Acute diastolic class III CHF - +6 kg over baseline weight. Continue Lasix. MIKAEL - Cr trending lower at 1.6 this morning. Avoid nephrotoxins. Monitor. Acute expected blood loss anemia - stable without the need for blood transfusions. Thrombocytopenia - platelets trending higher and recautionary HIT negative. Subjective: Feels well. Appetite has returned. Denies pain/SOB. Objective: Vital Signs Temp Pulse Resp BP Pulse Ox 37.0 C 88 20 126/81 H 95 10/09/17 07:16 10/09/17 07:16 10/09/17 07:16 10/09/17 07:16 10/09/17 07:16 Laboratory Results 10/08/17 05:55 10/09/17 06:18 10/08/1718 10/10/17 05:59 05:59 05:59 Intake Total 1400 2195 Output Total 1100 4395 Balance 300 -2200 PT 21.7 SEC (12.0-15.0) H 10/09/17 06:18 INR 1.88 (0.83-1.16) H 10/09/17 06:18 Physical Exam - Physical Exam General Appearance: WD/WN, alert, no apparent distress EENT: No scleral icterus (R), No scleral icterus (L) Neck: normal inspection Respiratory: No normal breath sounds Cardiac/Chest: regular rate, rhythm Abdomen: non-tender, soft, No distended Skin: normal color, warm/dry Extremities: pedal edema Neuro/Psych: no motor/sensory deficits, alert, normal mood/affect, oriented x 3 ICD10 Worksheet Patient Problems: Problems Problem Status Onset Acute blood loss anemia Acute Atrial fibrillation Acute Chest pain Acute Mild dilation of ascending aorta Acute S/P ablation of atrial fibrillation Acute ~10/04/17 S/P aortic valve replacement and aortoplasty Acute ~10/04/17 Severe calcific aortic valve stenosis Acute
--- NOTE | 2017-10-09 08:31 | CPEKG ---
Heart Rate: 68 RR Interval: 882 P-R Interval: 136 QRSD Interval: 110 QT Interval: 408 QTC Interval: 434 P [place]: -18 QRS [place]: 8 T Wave [place]: 172 EKG Severity - ABNORMAL ECG - EKG Impression: SINUS RHYTHM EKG Impression: NONSPECIFIC INTRAVENTRICULAR CONDUCTION DELAY EKG Impression: PROBABLE LVH WITH SECONDARY REPOL ABNRM Electronically Signed By: Chris Kwong 09-Oct-2017 09:52:49
[2017-10-09] MEDS ORDERED: POTASSIUM CL 10 MEQ TAB ONE ×3 (09:35→17:44)
--- NOTE | 2017-10-09 09:57 | PDCARPN ---
Cardiology Progress Note Assessment/Plan: Assessment/plan: 56-year-old male with bicuspid aortic valve and aortic stenosis. Status post bioprosthetic aortic valve replacement with #27 magna prosthesis, patch aortoplasty, and Mcarthur Maze 4 on October 04. He has intermittent Guy arrhythmias. 1. Guy arrhythmias: Intermittent pacing from his epicardial wires as well as short periods of junctional rhythm. He has not had either of these since early on the morning of the . Currently in sinus rhythm. 2. Atrial fibrillation: Coumadin restarted. Trial of beta-jessica today while epicardial pacer wires are still in. 3. Status post bioprosthetic aortic valve replacement: Functioning normally on postoperative echocardiogram 4. Acute kidney injury: improving. 5. Postoperative anemia and thrombocytopenia: Slowly improving. HIT panel is negative. 6. Heart failure preserved ejection fraction and LVH: Diuresing well. 7. Hypoxia: Persistent heart failure. Pneumonia seems less likely. Elevated white count is an expected finding post cardiac surgery. 10/09/17 09:57 Subjective: Melvin feels better today. Dyspnea is improving. He is walking with less fatigue. Pain is manageable. Reviewed/Discussed With: other (CT surgery) Objective: Vital Signs (8 Hrs) Temp Pulse Resp BP Pulse Ox 10/09/17 07:16 37.0 C 88 20 126/81 H 95 10/09/17 03:26 36.7 C 73 16 139/91 H 94 Intake/Output (24 Hrs) 10/08/17 10/09/17 10/10/17 05:59 05:59 05:59 Intake Total 1400 2195 Output Total 1100 4395 Balance 300 -2200 Intake: Oral (ml) 1400 2020 IV Intake (ml) 25 IV Infused (ml) 150 POTASSIUM Cl (KCl) 50 ml 150 @ 25 mls/hr IV Q2H DURGA Rx #:[id number] Output: Urine (ml) 1100 4395 Urinal 1100 4395 Other: Weight 113.9 kg Number of Voids Toilet 1 Urinal 2 2 No acute distress. JVP 12 cm of water. Regular rate and rhythm with soft early systolic ejection murmur at the base. Soft early systolic murmur at the apex. Tubular breath sounds at both bases. Slightly decreased breath sounds at the left apex. No wheezes or rales. Trace bilateral ankle edema Chest x-ray reviewed: Small left apical pneumothorax. Opacity left base, possibly pneumonia versus atelectasis. Result Diagrams: 10/08/17 05:55 10/09/17 06:18 EKG: Review x2, yesterday and today: Sinus rhythm with LVH and associated repolarization abnormalities. Telemetry: Sinus rhythm with occasional PVCs ICD10 Worksheet Patient Problems: Problems Problem Status Onset Acute blood loss anemia Acute S/P ablation of atrial fibrillation Acute ~10/04/17 S/P aortic valve replacement and aortoplasty Acute ~10/04/17 Mild dilation of ascending aorta Acute Severe calcific aortic valve stenosis Acute Chest pain Acute Atrial fibrillation Acute
[2017-10-09] MEDS: FUROSEMIDE 40 MG/4 ML VIAL IVP SCH ×2 (10:37→15:57)
[2017-10-09] MEDS: ASPIRIN 81 MG CHEWABLE TAB PO SCH (10:37)
[2017-10-09] MEDS: PANTOPRAZOLE SODIUM 40 MG TAB PO SCH (10:38)
[2017-10-09] MEDS: METOPROLOL TARTRATE 25 MG TAB PO SCH ×2 (10:38→20:51)
[2017-10-09] MEDS: SENNOSIDES/DOCUSATE SODIUM TAB PO SCH ×2 (10:38→20:51)
[2017-10-09] MEDS: POTASSIUM CL 20 MEQ TAB PO SCH ×3 (10:39→21:50)
--- NOTE | 2017-10-09 12:04 | PDINTPN ---
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 Bracycardia: Still with pacer wires. MIKAEL: Improved Anemia DENYS: Suspected based on sabine self-awakenings gasping, snoring, witnessed apneas in hospital. Plan: Discussed with sabine/. He should be discharged on oxygen if having hypoxemia. Follow-up with me for outpatient evaluation for DENYS after discharge. 16 min time, >50% counseling/coordinating 10/09/17 12:02 10/09/17 12:04 Subjective: Pain control improved. Strength better. Sleeping fairly well. Objective: Vital Signs Temp Pulse Resp BP Pulse Ox 37.0 C 68 16 133/84 H 96 10/09/17 07:16 10/09/17 11:29 10/09/17 11:29 10/09/17 11:29 10/09/17 11:29 Laboratory Results 10/08/17 05:55 10/09/17 06:18 10/08/17 10/09/17 10/10/17 05:59 05:59 05:59 Intake Total 1400 2195 Output Total 1100 4395 450 Balance 300 -2200 -450 PT 21.7 SEC (12.0-15.0) H 10/09/17 06:18 INR 1.88 (0.83-1.16) H 10/09/17 06:18 ICD10 Worksheet Patient Problems: Problems Problem Status Onset Acute blood loss anemia Acute Atrial fibrillation Acute Chest pain Acute Mild dilation of ascending aorta Acute S/P ablation of atrial fibrillation Acute ~10/04/17 S/P aortic valve replacement and aortoplasty Acute ~10/04/17 Severe calcific aortic valve stenosis Acute
[2017-10-09 13:18] LABS: PLATELET COUNT 142 10^3/uL (150-400)
[2017-10-09] MEDS ORDERED: WARFARIN SODIUM 2.5 MG TAB PO ONE (16:00)
--- NOTE | 2017-10-09 16:18 | ASMTCMCOM ---
CM Note CM Note Notes: Therapies recommending In-pt Rehab-need "Order". Date Signed: 10/09/2017 04:17 PM Electronically Signed By:Sravanthi Yang LCSW
[2017-10-09] MEDS ORDERED: POTASSIUM CL 20 MEQ TAB PO ONE (18:42)
[2017-10-09] MEDS: BISACODYL 10 MG SUPP PR PRN ×2 (20:58→21:51)
[2017-10-10] MEDS: traMADol 50 MG TAB PO PRN (01:34)
[2017-10-10 04:13] LABS: INR 1.53 (0.83-1.16); PROTIME(PATIENT) 18.5 SEC (12.0-15.0)
--- NOTE | 2017-10-10 07:01 | SOAPPROG ---
SOAP Progress Note Assessment/Plan: Assessment: POD#6 AVR #27 Magna bioprosthesis, bovine pericardial patch aortoplasty, Mcarthur Maze IV BAV with severe and mildly dilated aorta - s/p tissue AVR with patch aortoplasty. Aorta (indexed to body size) not felt to warrant replacement. Antithrombotic prophylaxis as per Maze. PAF - Spontaneous conversion to SR preop. Postop CM4 rhythm initially junctional escape, req pacing. SB/SR gradually recovered and BB trial initiated. No zen/block/backup pacing/recurrent AF thus far. Antithrombotic prophylaxis with Coumadin, target INR 2-3, duration TBD. Acute diastolic CHF - Class III sx preop, exacerbated by and AF. Transient pressor support early postop. No delay in extubation. Actively diuresing moderate fluid overload. Staggered intro of heart failure regimen as allowed by BP and renal fx. MIKAEL - Preop Cr 1.0. Postop bump to peak of 2.5. Nonoliguric. Likely prerenal ( relatively low BP and NSAID). Steady improvement with supportive measures. Acute expected blood loss anemia with thrombocytopenia and mild coagulopathy - Stable. No transfusions required. No evidence active bleeding. Precautionary HIT negative. Platelet rebound noted. Plan: Stop diuresis. Cont metoprolol tartrate 25 mg BID. Clip Vwires. Inc Coumadin to 5 mg today. Wean O2. Dispo - Home tomorrow without services. 10/10/17 07:01 Subjective: Not sleeping well. Switched to recliner last noc with inc comfort but not more than a few hrs rest. Improving mobility. Satisfactory analgesia. Still feels constipated despite a small BM. Would like to stay one more night and go home in am. Objective: Vital Signs Temp Pulse Resp BP Pulse Ox 36.6 C 60 18 122/69 H 95 10/10/17 04:00 10/10/17 04:00 10/10/17 04:00 10/10/17 04:00 10/10/17 04:00 Laboratory Results 10/09/17 13:04 10/10/17 03:28 10/09/17 10/10/17 10/11/17 05:59 05:59 05:59 Intake Total 2195 1160 Output Total 4395 4400 Balance -2200 -3240 PT 18.5 SEC (12.0-15.0) H 10/10/17 03:28 INR 1.53 (0.83-1.16) H 10/10/17 03:28 Holding SR, no backup pacing triggered. Burst (6 beat) of NSVT early this am. K ok. Stable suppl O2 req. Vigorous diuresis. Now within 2 kg admit wt. Decr coumadin sensitivity, likely d/t decr hepatic congestion. - Pending Discharge Pending Discharge Within 24 Hours: Yes Pending Discharge Date: 10/11/17 Pending Discharge Time: 11:00 Physical Exam - Physical Exam General Appearance: alert, no apparent distress Respiratory: crackles (left base) Cardiac/Chest: regular rate, rhythm, other (Sternum grossly stable. Sternotomy CDI. Vwire intact.) Abdomen: non-tender, soft Skin: warm/dry Extremities: other (no visible edema) ICD10 Worksheet Patient Problems: Problems Problem Status Onset Acute blood loss anemia Acute Atrial fibrillation Acute Chest pain Acute Mild dilation of ascending aorta Acute S/P ablation of atrial fibrillation Acute ~10/04/17 S/P aortic valve replacement and aortoplasty Acute ~10/04/17 Severe calcific aortic valve stenosis Acute
--- NOTE | 2017-10-10 08:31 | CPEKG ---
Heart Rate: 70 RR Interval: 857 P-R Interval: 160 QRSD Interval: 110 QT Interval: 408 QTC Interval: 441 P [place]: -68 QRS [place]: 9 T Wave [place]: 175 EKG Severity - ABNORMAL ECG - EKG Impression: SINUS OR ECTOPIC ATRIAL RHYTHM EKG Impression: NONSPECIFIC INTRAVENTRICULAR CONDUCTION DELAY EKG Impression: MINIMAL ST DEPRESSION, LATERAL LEADS Electronically Signed By: Sandeep Hackett 10-Oct-2017 08:48:03
[2017-10-10] MEDS: PANTOPRAZOLE SODIUM 40 MG TAB PO SCH (08:39)
[2017-10-10] MEDS: ASPIRIN 81 MG CHEWABLE TAB PO SCH (08:39)
[2017-10-10] MEDS: METOPROLOL TARTRATE 25 MG TAB PO SCH ×2 (08:39→21:09)
[2017-10-10] MEDS ORDERED: SENNOSIDES/DOCUSATE SODIUM TAB PO PRN (09:00)
--- NOTE | 2017-10-10 10:24 | PDCARPN ---
Cardiology Progress Note Assessment/Plan: Assessment/plan: 56-year-old male with bicuspid aortic valve and aortic stenosis. Status post bioprosthetic aortic valve replacement with #27 magna prosthesis, patch aortoplasty, and Mcarthur Maze 4 on October 04. He has intermittent Guy arrhythmias, now resolved. 1. Guy arrhythmias: Intermittent pacing from his epicardial wires as well as short periods of junctional rhythm. He has not had either of these since early on the morning of the . Currently in sinus rhythm and tolerating metoprolol. 2. Atrial fibrillation: Coumadin restarted. Beta jessica restarted. 3. Status post bioprosthetic aortic valve replacement: Functioning normally on postoperative echocardiogram 4. Acute kidney injury: improving and now plateaued 5. Postoperative anemia and thrombocytopenia: Slowly improving. HIT panel is negative. 6. Heart failure preserved ejection fraction and LVH: Diuresed well. Lasix on hold (creatinine slightly up today) 7. Hypoxia: Persistent heart failure. Pneumonia seems less likely. Elevated white count is an expected finding post cardiac surgery and is improving 8. Possible DENYS: requires outpatient follow up with Dr. Dotson, who has seen the patient in the hosptial 9. Nonsustained VT; continue BB 10/10/17 11:18 Subjective: He feels better. SOB improved. Some lightheadedness; wonders if it is the tramadol. Reviewed/Discussed With: family, multidisciplinary team Objective: Vital Signs (8 Hrs) Temp Pulse Resp BP Pulse Ox 10/10/17 08:00 36.7 C 72 13 124/83 H 90 L 10/10/17 04:00 36.6 C 60 18 122/69 H 95 Intake/Output (24 Hrs) 10/09/17 10/10/17 10/11/17 05:59 05:59 05:59 Intake Total 2195 1160 Output Total 4395 4400 Balance -2200 -3240 Intake: Oral (ml) 2020 1160 IV Intake (ml) 25 0 IV Infused (ml) 150 POTASSIUM Cl (KCl) 50 ml 150 @ 25 mls/hr IV Q2H DURGA Rx #:[id number] Output: Urine (ml) 4395 4400 Toilet 400 Urinal 4395 4000 Other: Weight 113.9 kg 111.8 kg Intake Quantity Yes Sufficient Number of Voids Urinal 2 3 Number of Stools Toilet 1 Urinal 0 NAD JVP <10. RRR soft early SEE base and soft early systolic murmur apex Decreased breath sounds bilaterally No edema Result Diagrams: 10/09/17 13:04 10/10/17 03:28 Telemetry: NSR. One short run of nonsustained VT ICD10 Worksheet Patient Problems: Problems Problem Status Onset Acute blood loss anemia Acute S/P ablation of atrial fibrillation Acute ~10/04/17 S/P aortic valve replacement and aortoplasty Acute ~10/04/17 Mild dilation of ascending aorta Acute Severe calcific aortic valve stenosis Acute Chest pain Acute Atrial fibrillation Acute
[2017-10-10] MEDS ORDERED: METOCLOPRAMIDE 10 MG/2 ML VIAL IVP PRN (14:00)
[2017-10-10] MEDS ORDERED: WARFARIN SODIUM 5 MG TAB PO ONE (16:00)
--- NOTE | 2017-10-10 16:26 | ASMTCMCOM ---
CM Note CM Note Notes: Spoke with PT, OT, RN, and Cardiology PA regarding patient and his discharge needs. Therapies had been recommending inpatient rehab, but today changed recommendation to home with 24/7 supervision and possibly home care. I waited all day to meet with patient and , but due to weather, did not come back to hospital this afternoon. Patient prefers that we have the conversation with her present. Of note - patient is currently uninsured. [employer] submitted his Medicaid application 10/05, and it is still pending. If patient does not qualify, financial counseling will have to assist. If any discharge services are required, this issue will interfere. Case Management will follow. Date Signed: 10/10/2017 04:26 PM Electronically Signed By:Jessica Aldridge RN
[2017-10-10] MEDS ORDERED: MELATONIN 3 MG TAB PO PRN (20:00)
[2017-10-10] MEDS ORDERED: TEMAZEPAM 15 MG CAP PO PRN (21:00)
[2017-10-10] MEDS: ACETAMINOPHEN 325 MG TAB PO PRN (21:09)
[2017-10-11 04:54] LABS: INR 1.49 (0.83-1.16); PROTIME(PATIENT) 18.2 SEC (12.0-15.0)
[2017-10-11 07:53] VITALS: BP 142/72; PULSE 103; RESP 18; TEMP 98.3; O2SAT 97
--- NOTE | 2017-10-11 08:09 | SOAPPROG ---
SOAP Progress Note Assessment/Plan: POD#7 AVR #27 Magna bioprosthesis, bovine pericardial patch aortoplasty, Mcarthur Maze IV BAV with severe and mildly dilated aorta - stable s/p tissue AVR with patch aortoplasty. DVT prophylaxis with SCDs/Heparin SQ until therapeutic on Coumadin.. PAF s/p CM 4 - post-op JR/SR. Antithrombotic prophylaxis with Coumadin, target INR 2-3, duration dependent on rhythm stability. PPM need deferred d/t rhythm stability with beta-jessica. Acute diastolic class III CHF - medically optimized. MIKAEL - Recovering. Avoid nephrotoxins. Acute expected blood loss anemia - stable without the need for blood transfusions. Thrombocytopenia - platelets trending higher and precautionary HIT negative. Subjective: No complaints. Would like to go home. Objective: Vital Signs Temp Pulse Resp BP Pulse Ox 36.8 C 103 H 18 142/72 H 97 10/11/17 07:52 10/11/17 07:52 10/11/17 07:52 10/11/17 07:52 10/11/17 07:52 Laboratory Results 10/09/17 13:04 10/11/17 04:10 10/10/17 10/11/17 10/12/17 05:59 05:59 05:59 Intake Total 1160 1380 Output Total 4400 1500 350 Balance -3240 -120 -350 PT 18.2 SEC (12.0-15.0) H 10/11/17 04:10 INR 1.49 (0.83-1.16) H 10/11/17 04:10 Physical Exam - Physical Exam General Appearance: WD/WN, alert, no apparent distress EENT: No scleral icterus (R), No scleral icterus (L) Neck: normal inspection Respiratory: No respiratory distress Cardiac/Chest: regular rate, rhythm Abdomen: non-tender, soft, No distended Skin: normal color, warm/dry Extremities: No pedal edema Neuro/Psych: no motor/sensory deficits, alert, normal mood/affect, oriented x 3 ICD10 Worksheet Patient Problems: Problems Problem Status Onset Acute blood loss anemia Acute Atrial fibrillation Acute Chest pain Acute Mild dilation of ascending aorta Acute S/P ablation of atrial fibrillation Acute ~10/04/17 S/P aortic valve replacement and aortoplasty Acute ~10/04/17 Severe calcific aortic valve stenosis Acute
[2017-10-11] MEDS: PANTOPRAZOLE SODIUM 40 MG TAB PO SCH (08:48)
[2017-10-11] MEDS: ASPIRIN 81 MG CHEWABLE TAB PO SCH (08:48)
[2017-10-11] MEDS: METOPROLOL TARTRATE 25 MG TAB PO SCH (08:48)
--- NOTE | 2017-10-11 09:57 | PDHOMEO2F ---
Home Oxygen Face to Face Home Orders: I certify that a physician or a nurse practitioner or physician's multimedia production assistant has had a [id number] encounter with this patient on the date of this order due to the diagnosis listed, which relates to the primary reason the patient requires home oxygen. Alternative treatments have been tried, or considered, and deemed ineffective. It is anticipated that supplemental oxygen will result in improvement with treatment. Home oxygen qualifying diagnosis: acute heart failure, hypoxemia, right pneumothorax, atelectasis, SOB, afib Home oxygen secondary diagnosis: s/p open heart surgery (AVR) SpO2 on room air (%): 85 Frequency of home oxygen needed: continuous Home oxygen liters per minute: 2 Home oxygen delivery device: nasal cannula Concentrator: Yes E-tanks for mobility and back up: Yes If ordering portable O2, is the patient mobile in the home?: Yes I certify that, based on these findings, the home oxygen is medically necessary for this patient for the following length of time. Length of time home oxygen needed: 1 month
--- NOTE | 2017-10-11 16:38 | PDDCSUM ---
Discharge Summary Discharge Summary: ADMISSION DATE: 10/03/17 DISCHARGE DATE: 10/11/17 ADMISSION DX: 1. Severe aortic stenosis 2. Paroxysmal atrial fibrillation 3. Acute decompensated class III diastolic congestive heart failure DISCHARGE DX: 1. Severe aortic stenosis 2. Paroxysmal atrial fibrillation 3. Acute decompensated class III diastolic congestive heart failure 4. Acute blood loss anemia 5. Thrombocytopenia 6. Acute kidney injury PROCEDURES 10/04/17, Milton Vega: 1. AVR #27 Magna bioprosthesis 2. Aortoplasty of outflow tract with bovine pericardium 3. Mcarthur Maze IV HOSPITAL COURSE BY PROBLEM LIST 1. Severe aortic stenosis - stable s/p bioprosthetic AVR. ASA for thromboprophylaxis. 2. Paroxysmal atrial fibrillation - s/p Mcarthur-Maze IV. Continue beta-jessica. Continue Coumadin for at 3 months for thromboprophylaxis as per protocol. 3. Acute decompensated class III diastolic CHF - surgically and medically optimized with diuretic and beta-jessica. 4. Acute blood loss anemia with thrombocytopenia - stable without the need for transfusions. Precautionary HIT panel negative. 5. Acute kidney injury - recovery with supportive care. CONDITION Good DISPOSITION Home, self-care ACTIVITY Pt was instructed on sternal precautions, activity limitations, and which problems to call [facility] with. Please see Discharge Plan in chart for specifics. DISCHARGE MEDICATIONS 1. Acetaminophen [Tylenol 325mg (*)] 325 - 650 mg PO Q4HRS PRN 2. Aspirin [Aspirin 81mg (*)] 81 mg PO DAILY #30 3. Furosemide [Lasix 40 MG (*)] 40 mg PO DAILY 4. Metoprolol Tartrate [Lopressor 25 mg (*)] 25 mg PO BID 5. Potassium Cl [Klor-Con 20 meq (*)] 40 meq PO DAILY 6. Warfarin Sodium [Coumadin] 5 mg PO DAILY AT 4PM 7. traMADol [Ultram 50 mg (*)] 50 - 100 mg PO Q4HRS PRN 8. Oxygen 2 liters/min via nasal cannula PENDING STUDIES/LABS 1. CXR prior to surgical follow-up 2. INR on at [facility] F/U APPOINTMENTS 1. Milton Vega 10/18/17, 9:30 AM
== END 2017-10-11 15:21 | disposition home or self-care (01) | DRG 216 ==
LOC: CED 07:08 → CEDHOLD 07:58 → F2N 09:23 → OBSVTOIN 15:47 → F2N 10-04 15:14 → F2W 10-07 10:40
PROVIDERS: ADMIT Thoracic Surgery (Cardiothoracic Vascular Surgery); ATTEND Thoracic Surgery (Cardiothoracic Vascular Surgery)
PROC: B2111ZZ Fluoroscopy of Multiple Coronary Arteries using Low Osmolar Contrast (ICD-10-PCS; 2017-10-03)
PROC: 02RF08Z Replacement of Aortic Valve with Zooplastic Tissue, Open Approach (ICD-10-PCS; principal; 2017-10-04 14:30)
PROC: 02L70ZK Occlusion of Left Atrial Appendage, Open Approach (ICD-10-PCS; principal; 2017-10-04 14:30)
PROC: B245ZZ4 Ultrasonography of Left Heart, Transesophageal (ICD-10-PCS; principal; 2017-10-04 14:30)
PROC: 02580ZZ Destruction of Conduction Mechanism, Open Approach (ICD-10-PCS; principal; 2017-10-04 14:30)
PROC: 02UX08Z Supplement Thoracic Aorta, Ascending/Arch with Zooplastic Tissue, Open Approach (ICD-10-PCS; principal; 2017-10-04 14:30)
DX: Q23.1 Congenital insufficiency of aortic valve (principal); I35.0 Nonrheumatic aortic (valve) stenosis; I48.0 Paroxysmal atrial fibrillation; I24.9 Acute ischemic heart disease, unspecified; I77.810 Thoracic aortic ectasia; I50.31 Acute diastolic (congestive) heart failure; J95.811 Postprocedural pneumothorax; D62 Acute posthemorrhagic anemia; D69.59 Other secondary thrombocytopenia; N17.9 Acute kidney failure, unspecified; G47.30 Sleep apnea, unspecified
CPT/HCPCS: 71046-PO; 80048-PO; 82947-QW; 83880-PO; 84443-PO; 84484-PO; 85025-PO; 85378-PO; 85610-PO; 85730-PO; 86022-90; 86664-90; 86665-90; 97116-GP; 97162-GP; 97166-GO; 97530-GO; 97530-GP; 97535-GO; C1760; C1763; J0153; J0282; J0690; J1100; J1265; J1644; J1815; J1885; J1940; J2001; J2150; J2250; J2260; J2270; J2370; J2405; J2704; J2720; J2765; J2930; J3010; J3475; J3480; J7060; P9041; Q9967

== ENCOUNTER → 2017-10-18 | Outpatient (CLI) | payer MEDICAID | LOC: FIMAGING 09:00 | PROVIDERS: ATTEND Thoracic Surgery (Cardiothoracic Vascular Surgery) | DX: Z48.812 Encounter for surgical aftercare following surgery on the circulatory system (principal); Z95.2 Presence of prosthetic heart valve ==

== ENCOUNTER → 2017-10-31 | Outpatient (CLI) | payer MEDICAID | LOC: FIMAGING 09:09 | PROVIDERS: ATTEND Thoracic Surgery (Cardiothoracic Vascular Surgery) | DX: J90 Pleural effusion, not elsewhere classified (principal); J98.11 Atelectasis; Z95.2 Presence of prosthetic heart valve ==

== ENCOUNTER 2018-08-14 11:15 | Observation (INO) | payer MEDICAID ==
--- NOTE | 2018-08-14 13:17 | PDHOSCONS ---
<Shara Landin - Last Filed: 08/14/18 14:20> History and Physical - Chief Complaint Heart pause - History of Present Illness Hospital medicine asked to consult. 57 y/o male has a cardiac history of bioprosthetic AVR, patch aortoplasty and MAZE procedure in September 2017. In January 2018, he had a tooth infection and although it was recommended by cards for a LINQ d/t wide complex arrhythmia, he did not want to proceed feeling that the arrhythmias were tooth related. After correction of his tooth infection, he no longer felt any palpitations. The pt began a 30-day monitoring in July 2018 to ensure no further arrhythmias. Today, the pt's heart paused 6 seconds. He was meditating and denies feeling lightheaded but he reports he was sitting and in the transitional phase between relaxed and asleep but reports if he was upright and moving, he would have more pronounced symptoms with possibility of syncopal event. He has not taken metoprolol for 3 days now. He reports getting over URI (viral) and at times, feels like he doesn't fully exhale and waits for his heart to catch up with his breathing. He was directly admitted under cards supervision for further monitoring while off metoprolol. He most likely will need a pacemaker which would take place on 08/16/18. The pt does not want a pacemaker; he is hoping his pauses resolve. Past Medial/Surgical History 1. Atrial fibrillation 2. Aortic stenosis 3. Dilation of ascending aorta 4.4 cm 4. Bioprosthetic aortic valve replacement 5. MAZE procedure 6. Ligation of atrial appendage 7. Right lung nodule Social 1. Denies tobacco or illicit drug use. Drinks one glass of wine/week. 2. History Information - Allergies/Home Medication List Allergies/Adverse Reactions: bee stings Allergy (Uncoded 10/03/17 11:12) I have personally reviewed and updated: family history, medical history Past Medical History: See HPI list - Past Medical History atrial fibrillation Additional medical history: Aortic stenosis identified in childhood, has not had an echocardiogram as an adult - Surgical History Reports: no pertinent surgical hx - Family History Positive for: CAD, hypertension Additional family history: No family history of premature coronary disease or aortic dissection - Social History Smoking Status: Never smoked Alcohol Use: Rarely Drug Use: None Additional social history: Independent in ADLs, exercises by walking, hiking, skiing Review of Systems Review of Systems: ROS: 10pt was reviewed & negative except for what was stated in HPI & below Constitutional: Reports: no symptoms EENMT: Reports: no symptoms Cardiac: Reports: no symptoms Respiratory: Reports: no symptoms Gastrointestinal: Reports: no symptoms Genitourinary: Reports: no symptoms Muscolosketal: Reports: no symptoms Skin: Reports: no symptoms Neurological: Reports: no symptoms Hematologic/Lymphatic: Reports: no symptoms Immunologic/Allergy: Reports: no symptoms Physical Exam Physical Exam: Constitutional: no apparent distress, appears nourished, not in pain Eyes: PERRL, anicteric sclera, EOMI Ears, Nose, Mouth, Throat: moist mucous membranes, hearing normal, ears appear normal, no oral mucosal ulcers Cardiovascular: regular rate and rhythym, no murmur, rub, or gallop, No edema Peripheral Pulses: 2+: dorsalis-pedis (R) (Radial 2+), dorsalis-pedis (L) ( Radial 2+) Respiratory: no respiratory distress, no rales or rhonchi, clear to auscultation Gastrointestinal: normoactive bowel sounds, soft, non-tender abdomen, no palpable masses Genitourinary: no bladder fullness, no bladder tenderness Skin: warm, normal color, no rashes or abrasions, no fluctuance, no induration, No mottled Musculoskeletal: full muscle strength, no muscle tenderness, normal joint ROM, no joint effusions Neurologic: AAOx3, sensation intact bilaterally, CN II-XII Intact Psychiatric: interacting appropriately, not anxious, not encephalopathic, thought process linear Lymph, Heme, Immunologic: no cervical LAD, no supraclavicular LAD Assessment & Plan Plan: 57 y/o male with cardiac arrhythmias is being admitted for further monitoring while off metoprolol and most likely pacemaker placement on 08/16/18. 1. Arrhythmias -Cardiology admitting -Continue ASA 81 mg -Tele Monitoring 2. Ascending aorta: 4.4 cm -Recommend pt f/u CT in 6-12 months 3. Right lung nodule -Recommend pt f/u CT in 6-12 months Diet: Cardiac Code: Full Dispo: Admit to inpatient <Pooja Tom - Last Filed: 08/14/18 17:26> History and Physical - History of Present Illness Review of Systems Review of Systems: Physical Exam Physical Exam: Temp Pulse Resp BP Pulse Ox 36.9 C 66 10 L 156/93 H 97 08/14/18 16:23 08/14/18 16:23 08/14/18 16:23 08/14/18 16:23 08/14/18 16:23 Lab Data & Imaging Review 08/14/18 14:45 08/14/18 14:45 WBC 5.68 10^3/uL (3.80-9.50) 08/14/18 14:45 RBC 4.67 10^6/uL (4.40-6.38) 08/14/18 14:45 Hgb 14.7 g/dL (13.7-17.5) 08/14/18 14:45 Hct 42.4 % (40.0-51.0) 08/14/18 14:45 MCV 90.8 fL (81.5-99.8) 08/14/18 14:45 MCH 31.5 pg (27.9-34.1) 08/14/18 14:45 MCHC 34.7 g/dL (32.4-36.7) 08/14/18 14:45 RDW 12.0 % (11.5-15.2) 08/14/18 14:45 Plt Count 195 10^3/uL (150-400) 08/14/18 14:45 MPV 10.8 fL (8.7-11.7) 08/14/18 14:45 Neut % (Auto) 57.6 % (39.3-74.2) 08/14/18 14:45 Lymph % (Auto) 28.9 % (15.0-45.0) 08/14/18 14:45 [place] % (Auto) 9.9 % (4.5-13.0) 08/14/18 14:45 Eos % (Auto) 2.3 % (0.6-7.6) 08/14/18 14:45 Baso % (Auto) 0.9 % (0.3-1.7) 08/14/18 14:45 Nucleat RBC Rel Count 0.0 % (0.0-0.2) 08/14/18 14:45 Absolute Neuts (auto) 3.28 10^3/uL (1.70-6.50) 08/14/18 14:45 Absolute Lymphs (auto) 1.64 10^3/uL (1.00-3.00) 08/14/18 14:45 Absolute Monos (auto) 0.56 10^3/uL (0.30-0.80) 08/14/18 14:45 Absolute Eos (auto) 0.13 10^3/uL (0.03-0.40) 08/14/18 14:45 Absolute Basos (auto) 0.05 10^3/uL (0.02-0.10) 08/14/18 14:45 Absolute Nucleated RBC 0.00 10^3/uL (0-0.01) 08/14/18 14:45 Immature Gran % 0.4 % (0.0-1.1) 08/14/18 14:45 Immature Gran # 0.02 10^3/uL (0.00-0.10) 08/14/18 14:45 PT 15.3 SEC (12.0-15.0) H 08/14/18 14:45 INR 1.19 (0.83-1.16) H 08/14/18 14:45 APTT 23.4 SEC (23.0-38.0) 08/14/18 14:45 Sodium 137 mEq/L (135-145) 08/14/18 14:45 Potassium 4.3 mEq/L (3.5-5.2) 08/14/18 14:45 Chloride 105 mEq/L (97-110) 08/14/18 14:45 Carbon Dioxide 25 mEq/l (22-31) 08/14/18 14:45 Anion Gap 7 mEq/L (6-14) 08/14/18 14:45 BUN 19 mg/dL (7-23) 08/14/18 14:45 Creatinine 1.0 mg/dL (0.7-1.3) 08/14/18 14:45 Estimated GFR > 60 08/14/18 14:45 Glucose 87 mg/dL (70-100) 08/14/18 14:45 Calcium 9.1 mg/dL (8.5-10.4) 08/14/18 14:45 Magnesium 2.0 mg/dL (1.6-2.3) 08/14/18 14:45 Total Bilirubin 0.6 mg/dL (0.1-1.4) 08/14/18 14:45 AST 42 IU/L (17-59) 08/14/18 14:45 ALT 48 IU/L (21-72) 08/14/18 14:45 Alkaline Phosphatase 69 IU/L (38-126) 08/14/18 14:45 Troponin I < 0.012 ng/mL (0.000-0.034) 08/14/18 14:45 Total Protein 7.1 g/dL (6.3-8.2) 08/14/18 14:45 Albumin 4.3 g/dL (3.5-5.0) 08/14/18 14:45 TSH 1.480 uIU/mL (0.465-4.680) 08/14/18 14:45 Assessment & Plan Plan: Pt seen. Chart reviewed. Pt admitted for sinus arrest, 6 sec pause on outpatient electronic device monitor. He was asymptomatic. His beta jessica has been held. He'll be monitored on telemetry. Cardiology is considering possible pacemaker versus LINQ. Agree with A&P as above.
[2018-08-14] MEDS ORDERED: TEMAZEPAM 15 MG CAP PO PRN (14:13)
[2018-08-14] MEDS: ASPIRIN 81 MG CHEWABLE TAB PO SCH (14:33)
--- NOTE | 2018-08-14 14:54 | GHP ---
DATE OF ADMISSION: 08/14/2018 CHIEF COMPLAINT: Sinus arrest with pauses. HISTORY OF PRESENT ILLNESS: The patient is a 57-year-old male, who is known to our practice. He has significant past history that includes bicuspid aortic valve with critical and AI, status post aortic valve replacement 09/2017. At the time also for his procedure, he did undergo a Mcarthur Maze procedure, aortoplasty of the outflow tract, and left atrial appendage occlusion. He also has significant cardiac history of paroxysmal atrial fibrillation and dilate ascending aorta. Postoperatively from his surgery, patient was noted to have intermittent zen arrhythmias, intermittently paced with short periods of junctional rhythm. Upon discharge, he was maintained sinus rhythm . As part of his followup procedures, when last seen by Dr. West on May 11, he had wanted him to undergo 30-day Preventice monitor, for evaluation of any other bradycardia or arrhythmias. Over the last few days, he had been noted to have brief episodes of pauses, noting up to 3 seconds. Approximately 2 days ago. He was called by our office, and asked to hold his metoprolol. This morning, while wearing his Preventice monitor, approximately at 7:46 central time, he was noted to have a 6-second pause. He reported he was asymptomatic. Results of the testing were shown to Dr. Hackett, with recommendation of him being admitted to the hospital, and be placed on continuous night monitor for further evaluation. Patient upon my examination reports no history of chest pain or pressure. Denies any orthopnea, PND, edema, lightheadedness, near- syncope, or syncopal events. He does report occasional episode (few time a week ) of "quick heartbeat" that lasts for approximately less than a second, with no associated symptoms. He denies any symptoms suggestive of TIA or CVA. PAST MEDICAL HISTORY: Includes bicuspid aortic valve with critical aortic stenosis and aortic insufficiency, paroxysmal atrial fibrillation first discovered at the time of his hospitalization in September of this year, dilate ascending aorta, also reports oral infection in March of this year requiring tooth extraction. PAST SURGICAL HISTORY: 1. Includes bioprosthetic study aortic valve replacement, with a #27 Magnum prosthetic. 2. Patch . 3. Mcarthur Maze procedure x4, left atrial appendage ligation. 4. Tooth extraction March of 2018. FAMILY HISTORY: Patient does report significant family history of CAD, stating father with history of coronary stents in his 60s. 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 He has children. He denies of any tobacco abuse, he does report occasional 1 cup of wine on a weekly basis, denies any illicit drug use. HOME MEDICATIONS: Include aspirin at 81 mg p.o. daily, Tylenol 325 mg 1-2 tablets p.r.n. every 4-6 hours. Patient has recently discontinued previous metoprolol tartrate dosage 2 days ago which was 37.5 mg p.o. twice daily. ALLERGIES: Patient states allergies to bee stings. No known drug allergies. REVIEW OF SYSTEMS: A 10-point review of systems done on this patient, all negative except as mentioned above. PHYSICAL EXAMINATION: GENERAL APPEARANCE: Medium built, well-groomed male. He is alert and oriented to person, place, time, and situation. Appears to be under no acute distress. VITAL SIGNS: Blood pressure 142/98, heart rate sinus rhythm, 77 on the monitor, respirations 17, saturating 96% on room air. Temperature 36.5 degrees Celsius. HEENT: Head is normocephalic. Lips and tongue are pink and moist with no signs of cyanosis. Conjunctivae pink. NECK: Trachea is midline, +2 carotid pulses bilateral. No auscultated bruits. No jugular vein distention. RESPIRATORY: Lungs are clear to auscultation. No rhonchi, rales or wheezes. No accessory muscle use. No intercostal muscle retraction noted. CARDIAC: Regular rate, regular rhythm, S1 , S2, 1 to 2 over 6 systolic murmur noted upper chest, no S3, gallops, rubs noted. ABDOMEN: Soft, nontender, bowel sounds x4 quadrants. No organomegaly. No palpable masses. SKIN: [place], warm, dry, no cyanosis, no clubbing, no peripheral edema. VASCULAR: +2 carotids bilateral, +2 radials bilateral, +2 dorsal pedal and posterior tibial pulses bilateral. LABORATORY STUDIES: Currently laboratory studies are pending. STUDIES: 12 Lead EKG today showed Sinus rhythm with t wave intervention in the lateral leads. Unchanged from EKG date 12/07/2017, done at [facility]. 30 day Preventice monitor this morning showing a 6-second pause with returning of sinus rhythm. PREVIOUS STUDIES: 1. The patient underwent cardiac catheterization on October 13, 2017, with no notable CAD. 2. Echocardiogram done on January 20, 2018, showing normal LV size, mild concentric LVH, normal global LV systolic function, EF of 76%, mildly dilated RV , mild MR, aortic valve was bioprosthetic, peak valve velocity was 2.46 m/sec, aortic valve mean gradient was 14 mmHg, mild TR, RVSP was within normal limits at 27 mmHg, the patient was noted to have a dilated ascending aorta at 4.6 cm. ASSESSMENT AND PLAN: 1. Sinus arrest with 6 second pause. The patient has recently undergone 30- day monitoring, he has been noted to have occasional 3-second pause, approximately 2 days ago he had stopped his metoprolol. This morning he was noted to have a 6-second pause, he was asymptomatic of any near-syncope or syncopal events. He reports no chest pain or pressure. He is currently maintaining sinus rhythm, will continue to monitor him on continuous cardiac monitoring today. Will continue holding his metoprolol. Laboratory studies order. Pending on what we see in the next day or so, the patient may need permanent pacemaker implantation, or at the very minimum consideration of loop recorder implantation. 2. Valvular heart disease: Patient with known history of bicuspid aortic valve with critical and AI, underwent bioprosthetic valve replacement September of this year. Most recent echocardiogram was done in January, showing a mean gradient of 14, and peak velocity at 2.46 m/s. He appears to be fairly euvolemic and reports no significant symptoms suggesting of heart failure. Continue to monitor. 3. Paroxysmal atrial fibrillation: Patient with previous history of paroxysmal atrial fibrillation, 1st discovered just prior to him undergoing surgery. Status post MAZE procedure. He did undergo 30 day monitor November 30, 2017, noting no atrial fibrillation. He has CHADS-VASc score of 0, we will continue him on aspirin therapy, beta jessica is on hold due to recent pauses, continue on cardiac monitoring. 4. Nonsustained VT: Patient was noted in November of this year to have 19 beat run of NSVT during 30 day monitor. He is currently on a 30-day monitor, I am attempting to contact [employer] to evaluate if he is having any further runs on his current 30-day monitoring. Will also check his potassium, magnesium, and TSH level. 5. Dilated ascending aorta. Patient's most recent echocardiogram done in [place] of this year noted ascending aorta of 4.6 cm (echo 01/20/2018), in comparison per Dr. West's cardiac cath report, was 4.5 cm in September of this year. The patient should continue on therapeutic monitoring of his ascending aorta dilation. His blood pressure is mildly elevated today, will continue to monitor , if necessary will start him on ACEi or ARB. Currently beta-blockers are on hold, due to his ongoing pauses. 6. Code status: Patient reports he is a full code. 7. DVT prophylaxis: Patient is considered a low risk patient, he is mobile. Will have him wear knee-high MELI hose. Per Dr. Hackett, hospitalists have also been consulted for evaluation. /[id number]/MODL MTDD
[2018-08-14] MEDS ORDERED: ONDANSETRON 4 MG/2 ML VIAL IVP PRN (15:06)
[2018-08-14] MEDS ORDERED: ONDANSETRON DISINTEGRATING 4 MG TAB PO PRN (15:06)
[2018-08-14] MEDS ORDERED: ATROPINE SULFATE 1 MG/10 ML SYR IVP PRN (15:06)
[2018-08-14] MEDS ORDERED: ACETAMINOPHEN 325 MG TAB PO PRN (15:06)
[2018-08-14 15:28] LABS: PLATELET COUNT 195 10^3/uL (150-400)
[2018-08-14 16:01] LABS: INR 1.19 (0.83-1.16); PROTIME(PATIENT) 15.3 SEC (12.0-15.0)
[2018-08-15 08:07] VITALS: BP 133/88
[2018-08-15] MEDS: ASPIRIN 81 MG CHEWABLE TAB PO SCH (08:24)
--- NOTE | 2018-08-15 08:32 | PDCARPN ---
Cardiology Progress Note Assessment/Plan: Assessment: sp AVR, maze procedure in 09/2017 UGI symptoms, mainly burping Sinus pauses up to 6 s, post >72 h of beta jessica Plan: Class I indication for pacemaker Discussed traditional pacemaker vs Micra. Transvenous traditional pacemaker - risk of pneumothorax, tamponade, lead dislodgement, TR, DVT, SVC syndrome, infection, bleeding Micra - risk of dislodgement, less experience with device, need for additional device, device not upgradeable, groin bleed, RP bleed etc Patient does not want any more opinions, he just needs more time to think about this and talk with his . He is tentatively on my schedule for PM at 8 AM tomorrow. Okay to delay device if he wants to wait to think about it some more. If he decides to leave hospital, it should be AMA, he understands. He also tells me if he leaves the hospital he agrees not to drive or operate machinery. Complex discussion, 60 min with patient 08/15/18 08:28 Subjective: Lighheadedness Burping/UGI distress Reviewed/Discussed With: multidisciplinary team Time Spent with Patient: greater than 35 minutes Time Spent with Patient: Greater than 35 minutes spent on this patients care, greater than 50% of time spent counseling, educating, and coordinating care regarding the above mentioned plan. Objective: Vital Signs (8 Hrs) Temp Pulse Resp BP Pulse Ox 08/15/18 08:05 36.6 C 73 17 133/88 H 95 08/15/18 04:00 36.6 C 78 14 111/76 92 Intake/Output (24 Hrs) 08/13/18 08/14/18 08/15/18 11:59 11:59 11:59 Intake Total 825 Balance 825 Intake: Oral (ml) 825 Other: Weight 108.862 kg Intake Quantity Yes Sufficient Number of Voids Toilet 2 Result Diagrams: 08/14/18 14:45 08/14/18 14:45 Cardiac Labs: Cardiac Lab Results (72 Hrs) 08/14/18 14:45 Troponin I < 0.012 Telemetry: Sinus pauses and junctional escape rhythm ICD10 Worksheet Patient Problems: Problems Problem Status Onset Acute blood loss anemia Acute S/P ablation of atrial fibrillation Acute ~10/04/17 S/P aortic valve replacement and aortoplasty Acute ~10/04/17 Mild dilation of ascending aorta Acute Severe calcific aortic valve stenosis Acute Chest pain Acute Atrial fibrillation Acute
--- NOTE | 2018-08-15 10:41 | HOSPPROG ---
Hospitalist Progress Note Assessment/Plan: I had a lengthy conversation with Dustin when I heard from the RN he planned to leave AMA. He had just signed an AMA form. We discussed his indication for a pacemaker and the risk of cardiac arrest with known 6 sec pause / sinus arrest prior to arrival. He understands the risk of sudden cardiac and opts to leave AMA and wait and see if he has recurrent pauses. He knows to discontinue the beta jessica. He agrees to follow up with Dr. Hackett. VSS CV RRR Pulm CTAB Abd benign Ext without edema Neuro intact Psych affect appropriate, A&O x3 Objective: Vital Signs Temp Pulse Resp BP Pulse Ox 36.6 C 73 17 133/88 H 95 08/15/18 08:05 08/15/18 08:05 08/15/18 08:05 08/15/18 08:05 08/15/18 08:05 Laboratory Results 08/14/18 14:45 08/14/18 14:45 08/14/18 08/15/18 08/16/18 05:59 05:59 05:59 Intake Total 825 Balance 825 PT 15.3 SEC (12.0-15.0) H 08/14/18 14:45 INR 1.19 (0.83-1.16) H 08/14/18 14:45 ICD10 Worksheet Patient Problems: Problems Problem Status Onset Acute blood loss anemia Acute Atrial fibrillation Acute Chest pain Acute Mild dilation of ascending aorta Acute S/P ablation of atrial fibrillation Acute ~10/04/17 S/P aortic valve replacement and aortoplasty Acute ~10/04/17 Severe calcific aortic valve stenosis Acute
[2018-08-16] MEDS ORDERED: NS 1,000 ML IV ONE ×2 (06:00→07:00)
[2018-08-16] MEDS ORDERED: BACITRACIN IRRIGATION/NS 50,000 UNITS/1,000 ML BTL IRR ONE (07:00)
[2018-08-16] MEDS ORDERED: ceFAZolin 2 GM/DEXTROSE 100 ML IV ONE (07:00)
--- NOTE | 2018-08-17 09:34 | CPEKG ---
Test Reason : OPEN Blood Pressure : / mmHG Vent. Rate : 065 BPM Atrial Rate : 066 BPM P-R Int : 175 ms QRS Dur : 108 ms QT Int : 440 ms P-R-T Axes : 061 -02 147 degrees QTc Int : 458 ms Sinus rhythm Abnrm T, consider ischemia, anterolateral lds Confirmed by Leighton West ([id number]) on 08/17/2018 9:34:25 AM Referred By: Confirmed By:Leighton West
--- NOTE | 2018-08-17 09:35 | CPEKG ---
Test Reason : OPEN Blood Pressure : / mmHG Vent. Rate : 074 BPM Atrial Rate : 073 BPM P-R Int : 173 ms QRS Dur : 106 ms QT Int : 419 ms P-R-T Axes : 064 008 134 degrees QTc Int : 465 ms Sinus rhythm Abnrm T, consider ischemia, anterolateral lds Confirmed by Leighton West ([id number]) on 08/17/2018 9:35:18 AM Referred By: Confirmed By:Leighton West
== END 2018-08-15 10:40 | disposition left against medical advice (07) ==
LOC: F2W 13:08
PROVIDERS: ADMIT Internal Medicine Cardiovascular Disease; ATTEND Internal Medicine Cardiovascular Disease
DX: I45.5 Other specified heart block (principal); I47.2 Ventricular tachycardia; Z95.2 Presence of prosthetic heart valve; I48.0 Paroxysmal atrial fibrillation
CPT/HCPCS: 93005; G0378; G0379; J0690

== ENCOUNTER 2018-09-25 14:55 | Emergency (ER) | payer MEDICAID ==
[2018-09-25] MEDS ORDERED: ONDANSETRON DISINTEGRATING 4 MG TAB PO ONE (15:10)
--- NOTE | 2018-09-25 16:05 | EDPHY ---
H & P Time Seen by Provider: 09/25/18 15:08 HPI/ROS: This patient presents with a 1/2 days of cough, fevers and chills with associated myalgias. He also complains of a mild frontal headache similar to prior headaches and nausea with vomiting yesterday and ongoing nausea today. He has tolerated p.o. Fluids but has no appetite. He reports associated coryza. He states the coughing is a dry hacky cough. Despite the cough he is able to sleep last night. Came in by private vehicle for evaluation of symptoms and notes no clear exacerbating factors. ROS: Constitutional: As per HPI-fevers and chills HEENT: Nasal congestion without sinus pain. No ear pain. No throat pain. Pulmonary: No hemoptysis. No pleuritic pain. No significant dyspnea Cardiovascular: No lightheadedness or heart palpitations. GI: No abdominal pain. No hematemesis. : No symptoms 7point review of symptoms is performed and otherwise negative with exception of pertinent positives and negatives listed in HPI and ROS Smoking Status: Never smoked Physical Exam: Physical Exam Vital signs are normal. General: No acute distress HEENT: Nose: Clear discharge bilaterally. No sinus tenderness to percussion. Ears: External canals and tympanic membranes are clear with no erythema or abnormal findings bilaterally. Oropharynx: No erythema or exudates. No dysphonia. No drooling or stridor. Eyes: Pupils equal and react to light. Extraocular motions are intact. Neck: Supple with no meningismus. No lymphadenopathy Lungs: Clear to auscultation bilaterally with no rales, rhonchi or wheeze. No respiratory distress. Cardiac: Regular rate and rhythm with no murmur gallop or rub Skin: No rash or pallor. Neuro: Alert with no focal deficits noted. Initial differential diagnosis: Influenza, bronchitis, pneumonia, URI with cough Constitutional: Initial Vital Signs Temperature (C) 37.4 C 09/25/18 15:01 Heart Rate 75 09/25/18 15:01 Respiratory Rate 18 09/25/18 15:01 Blood Pressure 135/87 H 09/25/18 15:01 O2 Sat (%) 95 09/25/18 15:01 O2 Delivery Mode Room Air Allergies/Adverse Reactions: bee stings Allergy (Uncoded 09/25/18 15:08) Home Medications: Medication Instructions Recorded Aspirin [Aspirin 81mg (*)] 81 mg PO DAILY #30 tab.chew 10/11/17 Ondansetron Odt [Zofran Odt] 4 - 8 mg PO Q4PRN PRN #4 tab 09/25/18 Oseltamivir Phosphate [Tamiflu] 75 mg PO BID #10 capsule 09/25/18 MDM/Departure - [facility] Diagnostics: Two view chest x-ray: No focal infiltrates by my interpretation Imaging Results: Imaging Impressions Chest X-Ray 09/25/18 15:11 Impression: Stable chest. Prior aortic valve replacement. No acute cardiopulmonary process identified. Imaging: I viewed and interpreted images myself Medications Given: Discontinued Medications Ondansetron HCl (Zofran Odt) 4 mg PO EDNOW ONE Stop: 09/25/18 15:11 Last Admin: 09/25/18 15:23 Dose: 4 mg ED Course/Re-evaluation: Patient's rapid influenza is positive for influenza A. I counseled regarding this. Given that he is within 48 hr window, will cover him with Tamiflu. Counseled regarding this. He received Zofran sublingual here with resolution of his nausea. Will continue Zofran as well p.r.n.. I also encouraged him to take NSAIDs for myalgias and to avoid being around people until his symptoms resolve. He understands need to return emergency department should he develop any significant worsening of symptoms. We ruled out pneumonia within normal chest x-ray today. - Depart Disposition: Home, Routine, Self-Care Clinical Impression: Influenza A Vomiting Qualifiers: Vomiting type: unspecified Vomiting Intractability: non-intractable Nausea presence: with nausea Qualified Code(s): R11.2 - Nausea with vomiting, unspecified Condition: Good Instructions: Influenza (ED), Acute Nausea and Vomiting (ED) Additional Instructions: Diagnoses:. Influenza A 2. Vomiting Plan: Humidifier Drink plenty of fluids Light diet to feel improved Zofran for nausea vomiting if needed Tamiflu as prescribed Ibuprofen or Naprosyn anti-inflammatory for aches and pains as needed Try to avoid being around people until your symptoms have improved likely over the next 2-3 days. Return for any significant worsening despite treatment plan. Prescriptions: Ondansetron Odt [Zofran Odt] 4 - 8 mg PO Q4PRN PRN #4 tab PRN Reason: Vomiting Oseltamivir Phosphate [Tamiflu] 75 mg PO BID #10 capsule Referrals: NONE *PRIMARY CARE P,. [Primary Care Provider] - As per Instructions Mannie Brown MD [[facility] [place] - As per Instructions
[2018-09-25 16:35] VITALS: BP 127/85
== END 2018-09-25 16:10 | disposition home or self-care (01) ==
LOC: CED 14:55
DX: J10.1 Influenza due to other identified influenza virus with other respiratory manifestations (principal); R11.2 Nausea with vomiting, unspecified
CPT/HCPCS: 71046-PO; 99284-ER